=== PATIENT | male | born 1930 | race Caucasian/White ===

== ENCOUNTER 2017-02-13 18:39 | Inpatient (IN) | payer MEDICARE, BC ==
--- NOTE | 2017-02-13 19:06 | EDM.PDOC ---
ED HPI Trauma - General Chief Complaint: Trauma Stated Complaint: BY AMB Time Seen by Provider: 02/13/17 19:01 Source: Reports: Patient History Limitations: Reports: No limitations - History of Present Illness INITIAL COMMENTS - FREE TEXT/NARRATIVE: 86 yo white male c/o left leg weakness and fall today. PMHx. Low Back Problem and HTN Symptom Onset Date: 02/13/17 Symptom Onset Time: 17:00 Occurred When: this evening Occurred Where: home Method of Injury: fall Severity: moderate Pain/Injury Location: Reports: back Consciousness: Reports: no loss of consciousness Associated Symptoms: Reports: no other symptoms Allergies/ADRs: Allergies Penicillins Allergy (Verified 02/13/17 18:47) Cannot Remember Home Medications: Ambulatory Orders Aspirin [Adult Low Dose Aspirin EC] 81 mg PO DAILY 02/05/14 [Confirmed 11/29/16] Fenofibrate Nanocrystallized [Fenofibrate] 54 mg PO DAILY 02/05/14 [Confirmed ] Furosemide 40 mg PO DAILY 02/05/14 [Confirmed 11/29/16] Isosorbide Mononitrate [Isosorbide Mononitrate ER] 20 mg PO BID 02/05/14 [ Confirmed 11/29/16] Lisinopril 5 mg PO DAILY 02/05/14 [Confirmed 11/29/16] Metoprolol Succinate [Toprol XL 100mg] 100 mg PO DAILY 02/05/14 [Confirmed 11/29] Multivitamin [Multi-Vitamin Daily] 1 tab PO DAILY 02/05/14 [Confirmed 11/29/16] [place]-3/DHA/Epa/Fish Oil [Fish Oil Dr 500 mg Softgel] 1 gm PO BID 02/05/14 [ Confirmed 11/29/16] Omeprazole 20 mg PO DAILY 02/05/14 [Confirmed 11/29/16] Simvastatin 40 mg PO BEDTIME 02/05/14 [Confirmed 11/29/16] cloNIDine HCl [Clonidine HCl] 0.2 mg PO BID 02/05/14 [Confirmed 11/29/16] Sertraline [Zoloft] 50 mg PO DAILY 11/29/16 [Confirmed 11/29/16] Past Medical History Cardiovascular History: Reports: CAD, High cholesterol, Hypertension Genitourinary History: Reports: Renal disease Endocrine/Metabolic History: Reports: Diabetes, type II - Past Surgical History Cardiovascular Surgical History: Reports: Coronary artery bypass, Coronary artery stent Social & Family History - Tobacco Use Smoking Status *Q: Never Smoker Month Tobacco Last Used: 1960's Second Hand Smoke Exposure: No - Caffeine Use Caffeine Use: Reports: None - Alcohol Use Days Per Week of Alcohol Use: 0 - Recreational Drug Use Recreational Drug Use: No Drug Use in Last 12 Months: No - Living Situation & Occupation Occupation: retired Review of Systems - Review of Systems Review Of Systems: See Below Constitutional: Reports: weakness Eyes: Reports: no symptoms Ears: Reports: no symptoms Nose: Reports: no symptoms Mouth/Throat: Reports: no symptoms Respiratory: Reports: No Symptoms Cardiovascular: Reports: no symptoms GI/Abdominal: Reports: No symptoms Genitourinary: Reports: no symptoms Musculoskeletal: Reports: back pain Skin: Reports: no symptoms Neurological: Reports: Weakness (left leg) Psychiatric: Reports: no symptoms ED EXAM, TRAUMA (MAJOR/MULTI) - Physical Exam Exam: See Below Exam Limited By: No limitations General Appearance: alert, no apparent distress Head: atraumatic, normocephalic Eyes: bilateral eye: PERRL Ears: normal external exam Nose: normal inspection, normal mucousa Throat/Mouth: Normal inspection, Normal lips Neck: non-tender, full range of motion, normal alignment Cardiovascular: normal peripheral pulses, regular rate, rhythm Respiratory/Chest: no respiratory distress, lungs clear GI/Abdominal: normal bowel sounds, non tender Back: normal inspection, decreased range of motion Extremities: no evidence of injury, normal range of motion Neurologic: robotype operator II-XII nml as tested, no motor/sensory deficits, alert, normal mood/affect, oriented x 3 Skin: Normal color, Warm/dry Course - Orders/Labs/Meds Orders: Active Orders 24 hr Category Date Time Status Lumbar Spine 2 or 3V [CR] Urgent Exams 02/13/17 19:02 Taken Labs: Laboratory Tests 02/13/17 02/13/17 02/13/17 Range/Units 18:56 19:15 19:15 WBC 11.2 H (5.0-10.0) 10^3/uL RBC 3.40 L (4.6-6.2) 10^6/uL Hgb 9.3 L (14.0-18.0) g/dL Hct 28.5 L (40.0-54.0) % MCV 83.8 (80-100) fL MCH 27.4 (27.0-34.0) pg MCHC 32.6 L (33.0-35.0) g/dL Plt Count 208 (150-450) 10^3/uL Neut % (Auto) 81.8 H (42.2-75.2) % Lymph % (Auto) 8.7 L (20.5-50.1) % [place] % (Auto) 8.7 H (2-8) % Eos % (Auto) 0.5 L (1.0-3.0) % Baso % (Auto) 0.3 (0.0-1.0) % Sodium 129 L (135-145) mmol/L Potassium 4.2 (3.6-5.0) mmol/L Chloride 93 L (101-111) mmol/L Carbon Dioxide 23.0 (21.0-31.0) mmol/L Anion Gap 17.2 BUN 62 H (7-18) mg/dL Creatinine 2.1 H (0.6-1.3) mg/dL Est Cr Clr Drug Dosing TNP Estimated GFR (MDRD) 30 BUN/Creatinine Ratio 29.52 Glucose 175 H (74-105) mg/dL Calcium 8.9 (8.4-10.2) mg/dl Total Bilirubin 0.8 (0.2-1.0) mg/dL AST 134 H (10-42) IU/L ALT 49 (10-60) IU/L Alkaline Phosphatase 79 (42-121) IU/L Total Protein 7.6 (6.7-8.2) g/dl Albumin 3.2 (3.2-5.5) g/dl Globulin 4.4 Albumin/Globulin Ratio 0.73 Urine Color Yellow (YELLOW) Urine Appearance Clear (CLEAR) Urine pH 5.0 (5.0-9.0) Ur Specific [place] 1.010 (1.005-1.030) Urine Protein Trace H (NEGATIVE) Urine Glucose (UA) Negative (NEGATIVE) Urine Ketones Negative (NEGATIVE) Urine Occult Blood Negative (NEGATIVE) Urine Nitrite Negative (NEGATIVE) Urine Bilirubin Negative (NEGATIVE) Urine Urobilinogen 1.0 (0.2-1.0) mg/dL Ur Leukocyte Esterase Negative (NEGATIVE) Urine RBC Not seen /HPF Urine WBC 0-5 (0-5/HPF) /HPF Ur Epithelial Cells Few /HPF Urine Bacteria Few (0-FEW/HPF) /HPF Departure - Departure Time of Disposition: 20:06 Disposition: Admitted As Inpatient 68 Condition: fair Clinical Impression: Weakness, Hyponatremia, Renal failure, Hyperglycemia Fall Qualifiers: Encounter type: initial encounter Qualified Code(s): W19.XXXA - Unspecified fall, initial encounter Anemia Qualifiers: Anemia type: unspecified type Qualified Code(s): D64.9 - Anemia, unspecified Forms: ED Department Discharge - My Orders Last 24 Hours: My Active Orders 02/13/17 19:02 Lumbar Spine 2 or 3V [CR] Urgent - Assessment/Plan Last 24 Hours: My Active Orders 02/13/17 19:02 Lumbar Spine 2 or 3V [CR] Urgent
[2017-02-13 19:42] LABS: CHLORIDE,CL 93 mmol/L (101-111); SODIUM,NA 129 mmol/L (135-145)
--- NOTE | 2017-02-13 20:56 | PCM.HP ---
H&P History of Present Illness - General Date of Service: 02/13/17 Admit Problem/Dx: pt was admitted after fall at home, he says he fell because his Left leg " gave up" and was unable to stand. Son says he was unable to take his leg out of the car, had no strength in his lower extremity. Source of Information: Patient, Family History Limitations: Reports: No limitations - History of Present Illness Initial Comments - Free Text/Narative: The is a 86 Y/O M with past medical history which is significant for hypertension, diabetes type 2 for 8 to 10 years which is diet controlled. His A1c ranges from 6.2% to 6.7%. Other history includes cardiac arrhythmia, chronic kidney disease stage IV, history of colon cancer status post resection in 2007, coronary artery disease status post coronary artery bypass grafting ( CABG), dyslipidemia, and history of gout with no recent flare. I reviewed his renal panel and his creatinine ranged from 2.8 to 3.2 from 2014 but last renal clinic visit creatinine was at 1.9 mg/dl. pt was admitted after fall at home, he says he fell because his Left leg " gave up" and was unable to stand. Son says he was unable to take his leg out of the car, had no strength in his lower extremity. Pt had X-Ray of Lumber spine and No acute fracture of Lumber spine. Pt now lives independently but after this episode he needs evaluation for assisted living facility . Will wait for evaluation by PT/OT. Onset of Symptoms: Reports: today, sudden Location: Reports: lower extremity, left - Related Data Allergies/Adverse Reactions: Allergies Allergy/AdvReac Type Severity Reaction Status Date / Time Penicillins Allergy Cannot Verified 02/13/17 18:47 Remember Home Medications: Home Meds Aspirin [Adult Low Dose Aspirin EC] 81 mg PO DAILY 02/05/14 [History] Fenofibrate Nanocrystallized [Fenofibrate] 54 mg PO DAILY 02/05/14 [History] Furosemide 40 mg PO DAILY 02/05/14 [History] Metoprolol Succinate [Toprol XL 100mg] 100 mg PO DAILY 02/05/14 [History] Multivitamin [Multi-Vitamin Daily] 1 tab PO DAILY 02/05/14 [History] [place]-3/DHA/Epa/Fish Oil [Fish Oil Dr 500 mg Softgel] 1 gm PO BID 02/05/14 [ History] Simvastatin 40 mg PO BEDTIME 02/05/14 [History] cloNIDine HCl [Clonidine HCl] 0.2 mg PO BID 02/05/14 [History] Sertraline [Zoloft] 50 mg PO DAILY 11/29/16 [History] Acetaminophen [Tylenol] 325 mg PO Q8HR PRN 02/13/17 [History] Isosorbide Mononitrate [Isosorbide Mononitrate ER] 120 mg PO DAILY 02/13/17 [ History] LORazepam 0.5 mg PO Q8H PRN 02/13/17 [History] Magnesium 250 mg PO DAILY 02/13/17 [History] amLODIPine [Norvasc] 2.5 mg PO DAILY 02/13/17 [History] Past Medical History Cardiovascular History: Reports: CAD, High cholesterol, Hypertension Genitourinary History: Reports: Renal disease Endocrine/Metabolic History: Reports: Diabetes, type II - Past Surgical History Cardiovascular Surgical History: Reports: Coronary artery bypass, Coronary artery stent Social & Family History - Tobacco Use Smoking Status *Q: Never Smoker Month Tobacco Last Used: Second Hand Smoke Exposure: No - Caffeine Use Caffeine Use: Reports: None - Alcohol Use Days Per Week of Alcohol Use: 0 - Recreational Drug Use Recreational Drug Use: No Drug Use in Last 12 Months: No - Living Situation & Occupation Occupation: retired H&P Review of Systems - Review of Systems: Review Of Systems: See Below General: Reports: weakness, other (Left LE has no strength). Denies: fever, chills, diaphoresis, weight loss HEENT: Denies: headaches, sinus congestion, sore throat, visual changes Pulmonary: Denies: Shortness of Breath, Wheezing, Cough, Sputum Cardiovascular: Denies: chest pain, lightheadedness, syncope Gastrointestinal: Denies: Abdominal pain, Bloody stool, Diarrhea, Nausea, Vomiting Genitourinary: Denies: dysuria, frequency, burning Musculoskeletal: Reports: leg pain (Left LE). Denies: neck pain Skin: Denies: cyanosis, jaundice, bruising, pruritis Psychiatric: Denies: confusion, anxiety Neurological: Reports: Gait Disturbance. Denies: Confusion, Tingling Immunologic: Denies: environmental allergy, seasonal allergy Exam - Exam Exam: See Below - Vital Signs Weight: 84.822 kg - Exam Quality Assessment: DVT prophylaxis. No: supplemental oxygen, urinary catheter , skin breakdown General: alert, oriented HEENT: Conjunctiva clear, Hearing intact Neck: supple, full range of motion. No: lymphadenopathy, thyromegaly Lungs: Clear to auscultation, Normal respiratory effort. No: Crackles, Wheezing Cardiovascular: regular rate, regular rhythm, systolic murmur Abdomen: normal bowel sounds, soft. No: guarding, rigidity, rebound (Male) Exam: Deferred Rectal (Males) Exam: Deferred Back Exam: normal inspection, full range of motion Extremities: normal inspection. No: calf tenderness, edema Skin: warm, dry, intact Neurological: other (Significant weakness of Left LE) Neuro Extensive - Mental Status: alert, oriented x3, normal mood/affect, normal cognition, memory intact - Patient Data Result Diagrams: 02/13/17 19:15 02/13/17 19:15 *Q Meaningful Use (ADM) - VTE *Q VTE Criteria *Q: - Stroke *Q Stroke Criteria *Q: - AMI *Q AMI Criteria *Q: - Problem List (1) Left leg weakness SNOMED Code(s): 099389315 ICD Code: R29.898 - [facility] SYMPTOMS AND SIGNS INVOLVING THE MUSCULOSKELETAL SYSTEM Status: Acute Current Visit: Yes (2) CKD (chronic kidney disease) stage 4, GFR 15-29 ml/min SNOMED Code(s): 019749818 ICD Code: N18.4 - CHRONIC KIDNEY DISEASE, STAGE 4 (SEVERE) Status: Acute Current Visit: Yes (3) Fall SNOMED Code(s): 4913364, 260833723 ICD Code: W19.XXXA - UNSPECIFIED FALL, INITIAL ENCOUNTER Status: Acute Current Visit: Yes Qualifiers: Encounter type: initial encounter Qualified Code(s): W19.XXXA - Unspecified fall, initial encounter (4) Hyponatremia SNOMED Code(s): 11327715 ICD Code: E87.1 - HYPO-OSMOLALITY AND HYPONATREMIA Status: Acute Current Visit: Yes (5) Weakness SNOMED Code(s): 11663885 ICD Code: R53.1 - WEAKNESS Status: Acute Current Visit: Yes Problem List Initiated/Reviewed/Updated: Yes Assessment/Plan Comment:: The pt was admitted after fall at home, he says he fell because his Left leg " gave up" and was unable to stand. Son says he was unable to take his leg out of the car, he had no strength in his left lower extremity.DIRECTOR POWER of lumber spine showed no fracture 1. Left LE weakness: The etiology is not clear and it happen all of a sudden -CXR of LE spine showed no fracture -Will continue Percocet 5/325 q6-8 hrs prn pain -Will get PT/OT consult and evaluation for placement -Pt used to live independently and now with sudden weakness of left side he will not likely be able to live independently and will need placement in a assisted living facility 2. Hyponatremia: This is likely from pain syndrome -Will need better pain control -Will start him on oral salt tablet 1 gm PO BID with meals 3. Hypertension: BP acceptable, will continue home medication 4. CKD stage IV: This is likely from Hypertension and as well as Disbetes ( Diet Controlloed) -His base line 1.9-2.4 mg/dl and I have decided with him in renal Clinic ( I see him in clinic) and he wants to have Dialysis if Needed, his creatinine today was at 2.1 mg/dl and last clinic visit it was at 1.9 mg/dl and BUN is also elevated -Will start NS at 50 ml/hr 5. Anemia od Chronic Illness/CKD: His hb level was at 9.3 mg/dl, his hgb was at 11.2 g/dl in Nov 2016, will check Stool occult blood and aloso Iron Storage Level With history of Colon cancer and rsection in 2007, will not give Aranesp, will transfuse once hgb <8 g/dl 6. DVT prophylaxis: Will start on on heparin 5000 units TID 7. GI prophylaxis: Start Protonix 8. Code Status: Full Code
[2017-02-13] MEDS ORDERED: Acetaminophen 325 MG Tab PO PRN (21:32)
[2017-02-13] MEDS ORDERED: Docusate Sodium 100 MG Cap PO PRN (21:32)
[2017-02-13] MEDS: Heparin Sodium 5,000 Units/ML Vial SUBCUT SCH (23:18)
[2017-02-13] MEDS: Sodium Chloride 0.9% 250 ML IV SCH (23:21)
[2017-02-14] MEDS ORDERED: Acetaminophen 325 MG Tab PO PRN (00:07)
[2017-02-14] MEDS ORDERED: LORazepam 0.5 MG Tab PO PRN (00:07)
[2017-02-14] MEDS: Heparin Sodium 5,000 Units/ML Vial SUBCUT SCH ×3 (05:58→21:34)
[2017-02-14] MEDS: Pantoprazole 40 MG Tab.CR PO SCH (05:58)
[2017-02-14] MEDS: Multivitamins,Therapeutic Tab PO SCH (09:27)
[2017-02-14] MEDS: Metoprolol Succinate 50 MG Tab.ER PO SCH (09:27)
[2017-02-14] MEDS: Isosorbide Mononitrate 60 MG Tab.ER PO SCH (09:27)
[2017-02-14] MEDS: Aspirin 81 MG Tab.EC PO SCH (09:27)
[2017-02-14] MEDS: Sertraline 50 MG Tab PO SCH (09:28)
[2017-02-14] MEDS: cloNIDine 0.1 MG Tab PO SCH ×3 (09:28→23:09)
[2017-02-14] MEDS: Furosemide 40 MG Tab PO SCH (09:28)
[2017-02-14] MEDS: amLODIPine 5 MG Tab PO SCH (09:29)
--- NOTE | 2017-02-14 11:30 | PCM.PN ---
- General Info Date of Service: 02/14/17 Admission Dx/Problem (Free Text): pt was admitted after fall at home, he says he fell because his Left leg " gave up" and was unable to stand. Son says he was unable to take his leg out of the car, had no strength in his lower extremity. Subjective Update: pt feels little better today, able to come from bed to chair with assistance but too unsteady. appetite is good, No nausea or vomiting, No fever or chill. had no complain of back pain Functional Status: Reports: pain controlled, tolerating diet, urinating, other ( Very unsteady) - Review of Systems General: Reports: Weakness, Appetite (good). Denies: Fever, Chills HEENT: Denies: sinus congestion, sore throat, visual changes Pulmonary: Denies: shortness of breath, cough, sputum, wheezing Cardiovascular: Denies: Chest Pain, Palpitations, Lightheadedness Gastrointestinal: Denies: Abdominal pain, Nausea, Vomiting Genitourinary: Denies: dysuria, frequency, burning, urgency Skin: Denies: cyanosis, jaundice, bruising, pruritis, rash Neurological: Reports: Tremors. Denies: Confusion, Dizziness, Numbness Psychiatric: Reports: no symptoms - Patient Data Vitals - most recent: Last Vital Signs Temp 36.8 C 02/14/17 11:00 Pulse 72 02/14/17 11:00 Resp 20 02/14/17 11:00 BP 155/55 H 02/14/17 11:00 Pulse Ox 98 02/14/17 11:00 Weight - most recent: 84.822 kg I&O - last 24 hours: Intake & Output 02/13/17 02/14/17 02/14/17 22:59 06:59 14:59 Intake Total 500 Output Total 500 900 Balance 0 -900 Lab Results last 24 hrs: Laboratory Results - last 24 hr 02/14/17 Range/Units 05:55 Sodium 131 L (135-145) mmol/L Potassium 4.1 (3.6-5.0) mmol/L Chloride 96 L (101-111) mmol/L Carbon Dioxide 22.0 (21.0-31.0) mmol/L Anion Gap 17.1 BUN 54 H (7-18) mg/dL Creatinine 1.8 H (0.6-1.3) mg/dL Est Cr Clr Drug Dosing 28.56 mL/min Estimated GFR (MDRD) 36 Glucose 149 H (74-105) mg/dL Calcium 9.0 (8.4-10.2) mg/dl Med Orders - Current: Current Medications Acetaminophen (Tylenol) 650 mg PO Q4H PRN PRN Reason: Pain (mild 1-3 )/fever Amlodipine Besylate (Norvasc) 2.5 mg PO DAILY [facility] Last Admin: 02/14/17 09:29 Dose: 2.5 mg Aspirin (Halfprin) 81 mg PO DAILY [facility] Last Admin: 02/14/17 09:27 Dose: 81 mg Clonidine HCl (Catapres) 0.2 mg PO BID [facility] Last Admin: 02/14/17 09:28 Dose: 0.2 mg Docusate Sodium (Colace) 100 mg PO DAILY PRN PRN Reason: Constipation Furosemide (Lasix) 40 mg PO DAILY [facility] Last Admin: 02/14/17 09:28 Dose: 40 mg Heparin Sodium (Porcine) (Heparin Sodium) 5,000 units SUBCUT Q8H [facility] Last Admin: 02/14/17 05:58 Dose: 5,000 units Sodium Chloride (Normal Saline) 250 mls @ 50 mls/hr IV ASDIRECTED [facility] Last Admin: 02/13/17 23:21 Dose: 50 mls/hr Isosorbide Mononitrate (Imdur) 120 mg PO DAILY [facility] Last Admin: 02/14/17 09:27 Dose: 120 mg Lorazepam (Ativan) 0.5 mg PO Q8H PRN PRN Reason: Anxiety Magnesium Oxide (Magnesium Oxide) 250 mg PO DAILY [facility] Last Admin: 02/14/17 09:28 Dose: 250 mg Metoprolol Succinate (Toprol Xl) 100 mg PO DAILY [facility] Last Admin: 02/14/17 09:27 Dose: 100 mg Multivitamins (Thera) 1 each PO DAILY [facility] Last Admin: 02/14/17 09:27 Dose: 1 each Fenofibrate 54 Mg (Own Med) 54 mg PO DAILY [facility] Fish Oil 1000 Mg (Own Med) 1 gm PO BID [facility] Pantoprazole Sodium (Protonix) 40 mg PO ACBREAKFAST [facility] Last Admin: 02/14/17 05:58 Dose: 40 mg Sertraline HCl (Zoloft) 50 mg PO DAILY [facility] Last Admin: 02/14/17 09:28 Dose: 50 mg Simvastatin (Zocor) 20 mg PO BEDTIME [facility] Discontinued Medications Acetaminophen (Tylenol) 325 mg PO Q8H PRN PRN Reason: Pain Stop: 02/14/17 00:09 - Exam Quality Assessment: DVT prophylaxis. No: supplemental oxygen, urine catheter General: alert, oriented, cooperative, no acute distress HEENT: Pupils equal, Mucous membr. moist/pink Neck: supple, no JVD, no thyromegaly. No: lymphadenopathy Lungs: Clear to auscultation, Normal respiratory effort Cardiovascular: Irregular Rhythm, Murmurs Abdomen: bowel sounds present, soft, no tenderness, no distension (Male) Exam: Deferred Back Exam: normal inspection Extremities: no edema, no tenderness/swelling, no clubbing, no calf tenderness Skin: warm, dry, intact Neurological: normal speech, normal tone, other (very unsteady) Psy/Mental Status: alert, normal affect, normal mood - Problem List & Annotations (1) Left leg weakness SNOMED Code(s): 929639106 Code(s): R29.898 - [facility] SYMPTOMS AND SIGNS INVOLVING THE MUSCULOSKELETAL SYSTEM Status: Acute Current Visit: Yes (2) CKD (chronic kidney disease) stage 4, GFR 15-29 ml/min SNOMED Code(s): 234593975 Code(s): N18.4 - CHRONIC KIDNEY DISEASE, STAGE 4 (SEVERE) Status: Acute Current Visit: Yes (3) Fall SNOMED Code(s): 3900237, 872485110 Code(s): W19.XXXA - UNSPECIFIED FALL, INITIAL ENCOUNTER Status: Acute Current Visit: Yes Qualifiers: Encounter type: initial encounter Qualified Code(s): W19.XXXA - Unspecified fall, initial encounter (4) Hyponatremia SNOMED Code(s): 72807173 Code(s): E87.1 - HYPO-OSMOLALITY AND HYPONATREMIA Status: Acute Current Visit: Yes (5) Weakness SNOMED Code(s): 68105754 Code(s): R53.1 - WEAKNESS Status: Acute Current Visit: Yes - Problem List Review Problem List Initiated/Reviewed/Updated: Yes - My Orders Last 24 Hours: My Active Orders 02/13/17 21:38 PT Evaluation and Treatment [CONS] Routine 02/13/17 21:39 OT Evaluation and Treatment [CONS] Routine 02/13/17 21:45 Sodium Chloride 0.9% [Normal Saline] 250 ml IV ASDIRECTED 02/14/17 00:07 LORazepam [Ativan] 0.5 mg PO Q8H PRN 02/14/17 06:00 Pantoprazole [ProTONIX] 40 mg PO ACBREAKFAST 02/14/17 09:00 Aspirin [Halfprin] 81 mg PO DAILY Fenofibrate Nanocrystallized [Fenofibrate] 54 mg PO DAILY Furosemide [Lasix] 40 mg PO DAILY Isosorbide Mononitrate [Imdur] 120 mg PO DAILY Magnesium Oxide 250 mg PO DAILY Metoprolol Succinate [Toprol XL] 100 mg PO DAILY Multivitamins,Therapeutic [Thera] 1 each PO DAILY [place]-3/DHA/Epa/Fish Oil [Fish Oil Dr 500 mg Softgel] 1 gm PO BID Sertraline [Zoloft] 50 mg PO DAILY amLODIPine [Norvasc] 2.5 mg PO DAILY cloNIDine [Catapres] 0.2 mg PO BID 02/14/17 21:00 Simvastatin [Zocor] 20 mg PO BEDTIME 02/15/17 06:00 CBC WITH AUTO DIFF [HEME] Routine 02/15/17 08:16 IRON PANEL IRON/TRANSFERR/FERR [REF] Routine - Plan Plan:: The pt was admitted after fall at home, he says he fell because his Left leg " gave up" and was unable to stand. Son says he was unable to take his leg out of the car, he had no strength in his left lower extremity.ADULT NURSE PRACTITIONER of lumber spine showed no fracture 1. Left LE weakness: The etiology is not clear and it happen all of a sudden -CXR of LE spine showed no fracture -Will continue Percocet 5/325 q6-8 hrs prn pain -I have placed PT/OT consult and evaluation for placement -Pt used to live independently and now with sudden weakness of left side he will not likely be able to live independently and will need placement in a assisted living facility and son aware of his dad's status 2. Hyponatremia: This is likely from pain syndrome -Will need better pain control -Will continue him on IV fluids NS at 50 ml/hr and sodium is improving with pain control 3. Hypertension: BP acceptable, will continue Imdur at 120 mg daily, Metoprolol at 100 mg daily and Amlodipine at 2.5 mg daily 4. CKD stage IV: This is likely from Hypertension and as well as Disbetes ( Diet Controlloed) -His base line 1.9-2.4 mg/dl and I have decided with him in renal Clinic ( I see him in clinic) and he wants to have Dialysis if Needed, his creatinine today was at 2.1 mg/dl and last clinic visit it was at 1.9 mg/dl and BUN is also elevated -Will continue NS at 50 ml/hr -Creatinine is better today, it was at 1.8 mg/dl and Bun has also Improved 5. Anemia od Chronic Illness/CKD: His hb level was at 9.3 mg/dl, his hgb was at 11.2 g/dl in Nov 2016, will check Stool occult blood and aloso Iron Storage Level With history of Colon cancer and rsection in 2007, will not give Aranesp, will transfuse once hgb <8 g/dl - Will check Iron storage level ( I have ordered) will take 2 days to get the result 6. DVT prophylaxis: Will start on on heparin 5000 units TID 7. GI prophylaxis: Start Protonix 8. Code Status: Full Code
[2017-02-14] MEDS: FISH OIL 1000 MG PO SCH ×2 (13:14→21:24)
[2017-02-14] MEDS: FENOFIBRATE 54 MG PO SCH (13:15)
[2017-02-14] MEDS: Sodium Chloride 0.9% 250 ML IV SCH (19:37)
[2017-02-14] MEDS ORDERED: Simvastatin 10 MG Tab PO SCH (21:00)
[2017-02-15] MEDS ORDERED: Sodium Chloride 0.9% 1,000 ML IV SCH (00:30)
[2017-02-15] MEDS: Heparin Sodium 5,000 Units/ML Vial SUBCUT SCH ×2 (05:50→13:45)
[2017-02-15] MEDS: Pantoprazole 40 MG Tab.CR PO SCH (05:50)
[2017-02-15] MEDS: Multivitamins,Therapeutic Tab PO SCH (09:34)
[2017-02-15] MEDS: Aspirin 81 MG Tab.EC PO SCH (09:34)
[2017-02-15] MEDS: Metoprolol Succinate 50 MG Tab.ER PO SCH (09:35)
[2017-02-15] MEDS: Furosemide 40 MG Tab PO SCH (09:35)
[2017-02-15] MEDS: cloNIDine 0.1 MG Tab PO SCH (09:35)
[2017-02-15] MEDS: amLODIPine 5 MG Tab PO SCH (09:35)
[2017-02-15] MEDS: FENOFIBRATE 54 MG PO SCH (09:36)
[2017-02-15] MEDS: Isosorbide Mononitrate 60 MG Tab.ER PO SCH (09:36)
[2017-02-15] MEDS: FISH OIL 1000 MG PO SCH (09:36)
[2017-02-15] MEDS: Sertraline 50 MG Tab PO SCH (10:35)
--- NOTE | 2017-02-15 14:26 | PCM.DCSUM1 ---
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 His A1c ranges from 6.2% to 6.7%. Other history includes cardiac arrhythmia, chronic kidney disease stage IV, history of colon cancer status post resection in 2007, coronary artery disease status post coronary artery bypass grafting ( CABG), dyslipidemia, and history of gout with no recent flare. His renal panel and his creatinine ranged from 2.8 to 3.2 from 2015 but last renal clinic visit creatinine was at 1.9 mg/dl. pt was admitted after fall at home. patient stated that prior to the fall he rode in the car with his son for several hour which is unusual for him. include sitting for long time his left leg went numb to the point that he found it difficult to get his leg out of the car. With the support of his son he went to the house and immediately fell because of numbed leg give up on him. he denies left upper extremities weakness, facial drooping, right-sided weakness, difficulty swallowing, difficulty understanding, slurred speech, incontinence, or any other symptoms. Patient's left leg numbness/weakness completely resolved today. He was assessed by the physical therapist and who had concerned about parkinsonism walk. Per patient request he wants to go back to his house and arranged for assisted living setting. He declined to go to a long-term at time. Pt had X-Ray of Lumber spine and No acute fracture of Lumber spine. on admission his WBC 11.2. Hemoglobin 9.3, dropped to 8.9 today. Her sodium on admission was 129, went to 131 yesterday. Creatinine was 2.1 on admission. iron panel was ordered and not resulted. Patient denies blood in the sore back stool. Patient did not have all movement to be able to collect Hemoccult. I discussed with him discussing his anemia with his primary care provider and ask for workup. He was advised to followup with neurologist as soon as possible. I will give him a trial of iron orally. 10 point review of systems is otherwise negative except as mentioned above - Discharge Data Discharge Date: 02/15/17 Discharge Disposition: Home, Self-Care 01 Condition: Fair - Discharge Diagnosis/Problem(s) (1) Anemia SNOMED Code(s): 158474108 ICD Code: D64.9 - ANEMIA, UNSPECIFIED Status: Chronic Current Visit: Yes Qualifiers: Anemia type: unspecified type Qualified Code(s): D64.9 - Anemia, unspecified (2) CKD (chronic kidney disease) stage 4, GFR 15-29 ml/min SNOMED Code(s): 209547554 ICD Code: N18.4 - CHRONIC KIDNEY DISEASE, STAGE 4 (SEVERE) Status: Chronic Current Visit: Yes (3) Fall SNOMED Code(s): 9613702, 027651735 ICD Code: W19.XXXA - UNSPECIFIED FALL, INITIAL ENCOUNTER Status: Acute Current Visit: Yes Qualifiers: Encounter type: initial encounter Qualified Code(s): W19.XXXA - Unspecified fall, initial encounter (4) Hyperglycemia SNOMED Code(s): 63590545 ICD Code: R73.9 - HYPERGLYCEMIA, UNSPECIFIED Status: Acute Current Visit : Yes (5) Hyponatremia SNOMED Code(s): 33009852 ICD Code: E87.1 - HYPO-OSMOLALITY AND HYPONATREMIA Status: Acute Current Visit: Yes (6) Left leg weakness SNOMED Code(s): 118072066 ICD Code: R29.898 - OTH SYMPTOMS AND SIGNS INVOLVING THE MUSCULOSKELETAL SYSTEM Status: Acute Current Visit: Yes (7) Weakness SNOMED Code(s): 01482534 ICD Code: R53.1 - WEAKNESS Status: Acute Current Visit: Yes - Patient Summary/Data Consults: Consultations 02/13/17 21:38 PT Evaluation and Treatment [CONS] Routine 02/13/17 21:39 OT Evaluation and Treatment [CONS] Routine - Patient Instructions Diet: Heart Healthy Diet Activity: As Tolerated (take all measures to avoid full. Using your walker) - Discharge Plan Prescriptions/Med Rec: Ferrous Sulfate 325 mg PO Q24H #30 tablet Omeprazole 20 mg PO Q24H #30 tablet. Home Medications: Home Meds Aspirin [Adult Low Dose Aspirin EC] 81 mg PO DAILY 02/05/14 [History] Fenofibrate Nanocrystallized [Fenofibrate] 54 mg PO DAILY 02/05/14 [History] Furosemide 40 mg PO DAILY 02/05/14 [History] Metoprolol Succinate [Toprol XL 100mg] 100 mg PO DAILY 02/05/14 [History] Multivitamin [Multi-Vitamin Daily] 1 tab PO DAILY 02/05/14 [History] [place]-3/DHA/Epa/Fish Oil [Fish Oil Dr 500 mg Softgel] 1 gm PO BID 02/05/14 [ History] Simvastatin 40 mg PO BEDTIME 02/05/14 [History] cloNIDine HCl [Clonidine HCl] 0.2 mg PO BID 02/05/14 [History] Sertraline [Zoloft] 50 mg PO DAILY 11/29/16 [History] Acetaminophen [Tylenol] 325 mg PO Q8HR PRN 02/13/17 [History] Isosorbide Mononitrate [Isosorbide Mononitrate ER] 120 mg PO DAILY 02/13/17 [ History] LORazepam 0.5 mg PO Q8H PRN 02/13/17 [History] Magnesium 250 mg PO DAILY 02/13/17 [History] amLODIPine [Norvasc] 2.5 mg PO DAILY 02/13/17 [History] Ferrous Sulfate 325 mg PO Q24H #30 tablet 02/15/17 [Rx] Omeprazole 20 mg PO Q24H #30 tablet. 02/15/17 [Rx] Patient Handouts: Fall Prevention in the Home, [id number], Iron tablets, capsules, extended-release tablets, Weakness, Omeprazole tablets (OTC) Referrals: PCP,Unobtain [Ordering Only Provider] - - General Info Admission Dx/Problem (Free Text: pt was admitted after fall at home, he says he fell because his Left leg " gave up" and was unable to stand. Son says he was unable to take his leg out of the car, had no strength in his lower extremity. Subjective Update: patient feels better today. He feels he is back to his normal. - Patient Data Vitals - Most Recent: Last Vital Signs Temp 36.9 C 02/15/17 11:03 Pulse 66 02/15/17 11:03 Resp 20 02/15/17 11:03 BP 116/46 L 02/15/17 11:03 Pulse Ox 97 02/15/17 11:03 Weight - Most Recent: 84.822 kg I&O - Last 24 hours: Intake & Output 02/14/17 02/15/17 02/15/17 22:59 06:59 14:59 Intake Total 1509 440 459 Output Total 400 225 Balance 1109 215 459 Lab Results - Last 24 hrs: Laboratory Results - last 24 hr 02/15/17 Range/Units 06:00 WBC 10.1 H (5.0-10.0) 10^3/uL RBC 3.29 L (4.6-6.2) 10^6/uL Hgb 8.9 L (14.0-18.0) g/dL Hct 28.3 L (40.0-54.0) % MCV 86.0 (80-100) fL MCH 27.1 (27.0-34.0) pg MCHC 31.4 L (33.0-35.0) g/dL Plt Count 192 (150-450) 10^3/uL Neut % (Auto) 75.6 H (42.2-75.2) % Lymph % (Auto) 14.2 L (20.5-50.1) % [place] % (Auto) 9.5 H (2-8) % Eos % (Auto) 0.5 L (1.0-3.0) % Baso % (Auto) 0.2 (0.0-1.0) % Med Orders - Current: Current Medications Acetaminophen (Tylenol) 650 mg PO Q4H PRN PRN Reason: Pain (mild 1-3 )/fever Amlodipine Besylate (Norvasc) 2.5 mg PO DAILY [facility] Last Admin: 02/15/17 09:35 Dose: 2.5 mg Aspirin (Halfprin) 81 mg PO DAILY [facility] Last Admin: 02/15/17 09:34 Dose: 81 mg Clonidine HCl (Catapres) 0.2 mg PO BID [facility] Last Admin: 02/15/17 09:35 Dose: 0.2 mg Docusate Sodium (Colace) 100 mg PO DAILY PRN PRN Reason: Constipation Furosemide (Lasix) 40 mg PO DAILY [facility] Last Admin: 02/15/17 09:35 Dose: 40 mg Heparin Sodium (Porcine) (Heparin Sodium) 5,000 units SUBCUT Q8H [facility] Last Admin: 02/15/17 13:45 Dose: Not Given Sodium Chloride (Normal Saline) 1,000 mls @ 50 mls/hr IV ASDIRECTED [facility] Last Admin: 02/15/17 00:27 Dose: 50 mls/hr Isosorbide Mononitrate (Imdur) 120 mg PO DAILY [facility] Last Admin: 02/15/17 09:36 Dose: 120 mg Lorazepam (Ativan) 0.5 mg PO Q8H PRN PRN Reason: Anxiety Magnesium Oxide (Magnesium Oxide) 250 mg PO DAILY [facility] Last Admin: 02/15/17 09:36 Dose: 250 mg Metoprolol Succinate (Toprol Xl) 100 mg PO DAILY [facility] Last Admin: 02/15/17 09:35 Dose: 100 mg Multivitamins (Thera) 1 each PO DAILY [facility] Last Admin: 02/15/17 09:34 Dose: 1 each Fenofibrate 54 Mg (Own Med) 54 mg PO DAILY [facility] Last Admin: 02/15/17 09:36 Dose: 54 mg Fish Oil 1000 Mg (Own Med) 1 gm PO BID [facility] Last Admin: 02/15/17 09:36 Dose: 1 gm Pantoprazole Sodium (Protonix) 40 mg PO ACBREAKFAST [facility] Last Admin: 02/15/17 05:50 Dose: 40 mg Sertraline HCl (Zoloft) 50 mg PO DAILY [facility] Last Admin: 02/15/17 10:35 Dose: 50 mg Simvastatin (Zocor) 20 mg PO BEDTIME [facility] Last Admin: 02/14/17 21:25 Dose: 20 mg Discontinued Medications Acetaminophen (Tylenol) 325 mg PO Q8H PRN PRN Reason: Pain Stop: 02/14/17 00:09 Sodium Chloride (Normal Saline) 250 mls @ 50 mls/hr IV ASDIRECTED [facility] Stop: 02/15/17 00:16 Last Admin: 02/14/17 19:37 Dose: 50 mls/hr - Exam General: Reports: alert, oriented, cooperative. Denies: no acute distress, mild distress, moderate distress, severe distress, sedated, lethargic, obtunded HEENT: Reports: Pupils equal, Pupils reactive, EOMI, Mucous membr. moist/pink Neck: Reports: supple, trachea midline, no JVD Lungs: Reports: Clear to auscultation, Normal respiratory effort. Denies: Crackles, Rales, Rhonchi, Rub, Stridor, Wheezing Cardiovascular: Reports: Regular Rate, Regular Rhythm. Denies: Irregular Rhythm Abdomen: Reports: bowel sounds present, soft, no tenderness, no distension. Denies: rigidity, rebound, guarding, tenderness, distension, abnormal bowel sounds, CVA tenderness, organomegaly (Male) Exam: Deferred Rectal (Males) Exam: Deferred Back Exam: Reports: normal inspection, full range of motion Extremities: Reports: no edema, normal pulses, no tenderness/swelling, no clubbing, no cyanosis, no calf tenderness Skin: Reports: warm, dry, intact Neurological: Reports: no new focal deficit, normal speech, normal tone, strength equal bilateral, reflexes equal bilateral, sensation intact, cranial nerves intact Psy/Mental Status: Reports: alert, normal affect, normal mood *Q Meaningful Use (DIS) - VTE *Q VTE Criteria *Q: - Stroke *Q Stroke Criteria *Q: - AMI *Q AMI Criteria *Q:
[2017-02-15 15:17] VITALS: BP 119/48
== END 2017-02-15 15:22 | disposition home or self-care (01) | DRG 556 ==
LOC: DL.ED 18:39 → UNDOADMOB 20:29 → DL.MS 20:29 → OBSVTOIN 21:32 → DL.MS 21:32
PROVIDERS: ADMIT Internal Medicine Nephrology; ATTEND Internal Medicine Nephrology
DX: R53.1 Weakness (principal); M54.5 Low back pain; M62.81 Muscle weakness (generalized); E87.1 Hypo-osmolality and hyponatremia; R73.9 Hyperglycemia, unspecified; N17.9 Acute kidney failure, unspecified; N18.4 Chronic kidney disease, stage 4 (severe); I12.9 Hypertensive chronic kidney disease with stage 1 through stage 4 chronic kidney disease, or unspecified chronic kidney disease; I25.10 Atherosclerotic heart disease of native coronary artery without angina pectoris; Z85.038 Personal history of other malignant neoplasm of large intestine; Z95.1 Presence of aortocoronary bypass graft; E78.5 Hyperlipidemia, unspecified; Z87.39 Personal history of other diseases of the musculoskeletal system and connective tissue; D64.9 Anemia, unspecified; W19.XXXA Unspecified fall, initial encounter; E11.65 Type 2 diabetes mellitus with hyperglycemia; R26.89 Other abnormalities of gait and mobility
CPT/HCPCS: 36415; 72100; 80048; 80053; 81001; 82728; 83540; 84466; 85025; 97162-GP; 97165-GO; 99285; A9270-GY; J1644; J7030; J7050

== ENCOUNTER 2017-03-31 22:50 | Emergency (ER) | payer MEDICARE, BC ==
[2017-04-01 00:05] LABS: CHLORIDE,CL 97 mmol/L (101-111); SODIUM,NA 132 mmol/L (135-145)
[2017-04-01] MEDS ORDERED: Acetaminophen 325 MG Tab PO ONE (01:54)
--- NOTE | 2017-04-01 02:04 | EDM.PDOC ---
ED HPI GENERAL MEDICAL PROBLEM - General Chief Complaint: Chest Pain Stated Complaint: L SIDE CHEST PAIN Time Seen by Provider: 03/31/17 22:55 Source of Information: Reports: Patient History Limitations: Reports: No Limitations - History of Present Illness INITIAL COMMENTS - FREE TEXT/NARRATIVE: ED ambulatory with c/o constant sharp left sided chest pain since 8pm. Has hx of similar intermittent pains in chest and epigastric area "forever" States he has been seen and nobody can tell him what pains are from. Denies nausea or sweating. Rates pain 8/10 on admission. Does not appear in distress, very talkative. Bruising noted to forehead and top of left hand. Admits from fall earlier to day while in clinic. Was seen in ED following and evaluated. Points to upper left chest and below ribs. Duration: Intermittent Location: Reports: Chest Treatments [employer]IG[employer] COMM[employer]ICATIONS MANAGER: Reports: Acetaminophen Left Lower Chest Pain Score (Numeric/FACES): 5 - Related Data Allergies Allergy/AdvReac Type Severity Reaction Status Date / Time Penicillins Allergy Cannot Verified 03/31/17 23:22 Remember Home Meds: Home Meds Aspirin [Adult Low Dose Aspirin EC] 81 mg PO DAILY 02/05/14 [History] Fenofibrate Nanocrystallized [Fenofibrate] 54 mg PO DAILY 02/05/14 [History] Furosemide 40 mg PO DAILY 02/05/14 [History] Metoprolol Succinate [Toprol XL 100mg] 100 mg PO DAILY 02/05/14 [History] Multivitamin [Multi-Vitamin Daily] 1 tab PO DAILY 02/05/14 [History] [place]-3/DHA/Epa/Fish Oil [Fish Oil Dr 500 mg Softgel] 1 gm PO BID 02/05/14 [ History] Simvastatin 40 mg PO BEDTIME 02/05/14 [History] cloNIDine HCl [Clonidine HCl] 0.2 mg PO BID 02/05/14 [History] Sertraline [Zoloft] 50 mg PO DAILY 11/29/16 [History] Acetaminophen [Tylenol] 325 mg PO Q8HR PRN 02/13/17 [History] Isosorbide Mononitrate [Isosorbide Mononitrate ER] 120 mg PO DAILY 02/13/17 [ History] LORazepam 0.5 mg PO Q8H PRN 02/13/17 [History] Magnesium 250 mg PO DAILY 02/13/17 [History] amLODIPine [Norvasc] 2.5 mg PO DAILY 02/13/17 [History] Ferrous Sulfate 325 mg PO Q24H #30 tablet 02/15/17 [Rx] Omeprazole 20 mg PO Q24H #30 tablet. 02/15/17 [Rx] Fluorouracil [Fluorouracil] 5 percent TOP DAILY 03/31/17 [History] Past Medical History HEENT History: Reports: Cataract Cardiovascular History: Reports: CAD, High Cholesterol, Hypertension Respiratory History: Reports: Bronchitis, Recurrent Genitourinary History: Reports: Renal Disease Other Genitourinary History: stage 4 kidney disease Musculoskeletal History: Reports: Arthritis, Gout Psychiatric History: Reports: Anxiety, Depression Endocrine/Metabolic History: Reports: Diabetes, Type II Oncologic (Cancer) History: Reports: Basal Cell Carcinoma, Colon, Prostate Dermatologic History: Reports: Melanoma - Past Surgical History Head Surgeries/Procedures: Reports: None HEENT Surgical History: Reports: Cataract Surgery Cardiovascular Surgical History: Reports: Coronary Artery Bypass, Coronary Artery Stent GI Surgical History: Reports: Appendectomy, Colonoscopy Dermatological Surgical History: Reports: Skin Biopsy Social & Family History - Family History Family Medical History: Noncontributory - Tobacco Use Smoking Status *Q: Unknown Ever Smoked Month Tobacco Last Used: 1959's Second Hand Smoke Exposure: No - Caffeine Use Caffeine Use: Reports: None - Alcohol Use Days Per Week of Alcohol Use: 0 - Recreational Drug Use Recreational Drug Use: No Drug Use in Last 12 Months: No - Living Situation & Occupation Occupation: Retired ED ROS GENERAL - Review of Systems Review Of Systems: See Below Constitutional: Reports: No Symptoms HEENT: Reports: No Symptoms Respiratory: Reports: No Symptoms Cardiovascular: Reports: Chest Pain (intermittent sharp) Musculoskeletal: Reports: No Symptoms Skin: Reports: Bruising (forehead), Wound (weeping skin tear right hand) Neurological: Denies: Confusion, Dizziness, Difficulty Walking, Weakness Psychiatric: Reports: Anxiety ED EXAM, GENERAL - Physical Exam Exam: See Below Exam Limited By: No Limitations General Appearance: Alert, No Apparent Distress (talkative,) Eye Exam: Bilateral Eye: EOMI, PERRL Ears: Normal External Exam, Normal TMs Nose: Normal Inspection Throat/Mouth: Normal Inspection Head: Atraumatic, Normocephalic Neck: Normal Inspection Respiratory/Chest: No Respiratory Distress, Lungs Clear, Normal Breath Sounds. No: Chest Non-Tender (tender with palpation right lateal chest) Cardiovascular: Normal Peripheral Pulses, Regular Rate, Rhythm, No Edema GI/Abdominal: Normal Bowel Sounds, Soft Back Exam: Normal Inspection Extremities: Normal Inspection Neurological: Alert, Oriented, Normal Cognition Psychiatric: Anxious Skin Exam: Warm, Dry, Ecchymosis (central forehead), Wound/Incision (skin tear right dorsal hand) EKG INTERPRETATION Rhythm: NSR Course - Vital Signs Last Recorded V/S: Last Vital Signs Temp 97.7 F 04/01/17 02:10 Pulse 75 04/01/17 02:10 Resp 23 H 04/01/17 02:10 BP 145/67 H 04/01/17 02:10 Pulse Ox 99 04/01/17 02:10 - Orders/Labs/Meds Labs: Laboratory Tests 03/31/17 03/31/17 Range/Units 23:08 23:08 WBC 12.3 H (5.0-10.0) 10^3/uL RBC 4.06 L (4.6-6.2) 10^6/uL Hgb 10.8 L (14.0-18.0) g/dL Hct 33.9 L (40.0-54.0) % MCV 83.5 (80-100) fL MCH 26.6 L (27.0-34.0) pg MCHC 31.9 L (33.0-35.0) g/dL Plt Count 276 (150-450) 10^3/uL Neut % (Auto) 77.3 H (42.2-75.2) % Lymph % (Auto) 14.8 L (20.5-50.1) % [place] % (Auto) 7.0 (2-8) % Eos % (Auto) 0.7 L (1.0-3.0) % Baso % (Auto) 0.2 (0.0-1.0) % Sodium 132 L (135-145) mmol/L Potassium 4.9 (3.6-5.0) mmol/L Chloride 97 L (101-111) mmol/L Carbon Dioxide 22.0 (21.0-31.0) mmol/L Anion Gap 17.9 BUN 53 H (7-18) mg/dL Creatinine 1.8 H (0.6-1.3) mg/dL Est Cr Clr Drug Dosing 28.49 mL/min Estimated GFR (MDRD) 36 BUN/Creatinine Ratio 29.44 Glucose 171 H (74-105) mg/dL Calcium 9.1 (8.4-10.2) mg/dl Total Bilirubin 1.4 H (0.2-1.0) mg/dL AST 113 H (10-42) IU/L ALT 43 (10-60) IU/L Alkaline Phosphatase 110 (42-121) IU/L Troponin I < 0.02 (0.00-0.02) ng/ml B-Natriuretic Peptide 130 H (0-100) pg/ml Total Protein 8.1 (6.7-8.2) g/dl Albumin 3.3 (3.2-5.5) g/dl Globulin 4.8 Albumin/Globulin Ratio 0.69 Amylase 608 H (28-100) U/L Meds: Medications Discontinued Medications Generic Name Dose Route Start Last Admin Trade Name Freq PRN Reason Stop Dose Admin Acetaminophen 650 mg 04/01/17 01:54 04/01/17 02:06 Tylenol PO 04/01/17 01:55 650 mg NOW ONE Administration - Radiology Interpretation Free Text/Narrative:: Cxr negative - Re-Assessments/Exams Free Text/Narrative Re-Assessment/Exam: 04/02/17 06:33 Patient anxious calms in ED, Reassurance given. Lengthy discussion with RN, Patient planning to move to Assisted Living first week of April, Chest pain resolved on arrival to ED remained pain free Departure - Departure Time of Disposition: 01:49 Disposition: Home, Self-Care 01 Condition: good Clinical Impression: Non-cardiac chest pain Referrals: Parker Velasquez MD [Primary Care Provider] - Forms: ED Department Discharge Additional Instructions: rest follow up with PCP return if symptoms worsen
[2017-04-01 03:05] VITALS: BP 145/67
--- NOTE | 2017-04-04 14:37 | EKG ---
03/31/2017 - ORIANA JEONG - TIME: 2254 hours. EKG per my reading, shows sinus rhythm at a rate of 87 with PACs. [facility] /[id number]
== END 2017-04-01 02:20 | disposition home or self-care (01) ==
LOC: DL.ED 22:50
DX: R07.89 Other chest pain (principal); I25.10 Atherosclerotic heart disease of native coronary artery without angina pectoris; E78.00 Pure hypercholesterolemia, unspecified; I12.9 Hypertensive chronic kidney disease with stage 1 through stage 4 chronic kidney disease, or unspecified chronic kidney disease; N18.4 Chronic kidney disease, stage 4 (severe); M19.90 Unspecified osteoarthritis, unspecified site; F41.9 Anxiety disorder, unspecified; F32.9 Major depressive disorder, single episode, unspecified; E11.9 Type 2 diabetes mellitus without complications; Z98.49 Cataract extraction status, unspecified eye; Z95.1 Presence of aortocoronary bypass graft; Z90.49 Acquired absence of other specified parts of digestive tract; Z88.0 Allergy status to penicillin; Z79.82 Long term (current) use of aspirin; Z79.899 Other long term (current) drug therapy; S61.411A Laceration without foreign body of right hand, initial encounter; S00.83XA Contusion of other part of head, initial encounter; I10 Essential (primary) hypertension; W19.XXXA Unspecified fall, initial encounter; R42 Dizziness and giddiness
CPT/HCPCS: 36415; 70450; 71010; 74176; 80053; 82150; 83880; 84484; 85025; 93005; 93010; 99282; 99283; 99284; 99285; A9270

== ENCOUNTER 2017-04-06 20:41 | Emergency (ER) | payer MEDICARE, BC ==
[2017-04-06 21:30] LABS: CHLORIDE,CL 93 mmol/L (101-111); SODIUM,NA 130 mmol/L (135-145)
--- NOTE | 2017-04-06 22:28 | EDM.PDOC ---
ED HPI GENERAL MEDICAL PROBLEM - General Chief Complaint: Respiratory Problem Stated Complaint: SOB,ABD PAINS, [id number] Time Seen by Provider: 04/06/17 20:55 Source of Information: Reports: Patient History Limitations: Reports: No Limitations - History of Present Illness INITIAL COMMENTS - FREE TEXT/NARRATIVE: c/o left side pain with nausea and dry heaves after waking from nap. Presents with granddaughter. Notes patient to be declining past month, has had 3 falls this month. Notes poor balance on standing . Left Chest Pain Score (Numeric/FACES): 4 - Related Data Allergies Allergy/AdvReac Type Severity Reaction Status Date / Time Penicillins Allergy Rash Verified 04/06/17 21:23 Home Meds: Home Meds Aspirin [Adult Low Dose Aspirin EC] 81 mg PO DAILY 02/05/14 [History] Fenofibrate Nanocrystallized [Fenofibrate] 54 mg PO DAILY 02/05/14 [History] Furosemide 40 mg PO DAILY 02/05/14 [History] Metoprolol Succinate [Toprol XL 100mg] 100 mg PO DAILY 02/05/14 [History] Multivitamin [Multi-Vitamin Daily] 1 tab PO DAILY 02/05/14 [History] [place]-3/DHA/Epa/Fish Oil [Fish Oil Dr 500 mg Softgel] 1 gm PO BID 02/05/14 [ History] Simvastatin 40 mg PO BEDTIME 02/05/14 [History] cloNIDine HCl [Clonidine HCl] 0.2 mg PO BID 02/05/14 [History] Sertraline [Zoloft] 50 mg PO DAILY 11/29/16 [History] Acetaminophen [Tylenol] 325 mg PO Q8HR PRN 02/13/17 [History] Isosorbide Mononitrate [Isosorbide Mononitrate ER] 120 mg PO DAILY 02/13/17 [ History] LORazepam 0.5 mg PO Q8H PRN 02/13/17 [History] Magnesium 250 mg PO DAILY 02/13/17 [History] amLODIPine [Norvasc] 2.5 mg PO DAILY 02/13/17 [History] Fluorouracil [Fluorouracil] 5 percent TOP DAILY 03/31/17 [History] Ferrous Sulfate 325 mg PO DAILY 04/06/17 [History] Omeprazole 20 mg PO DAILY 04/06/17 [History] traMADol [Ultram] 25 mg PO Q8H PRN 04/06/17 [History] Past Medical History HEENT History: Reports: Cataract Cardiovascular History: Reports: CAD, High Cholesterol, Hypertension Respiratory History: Reports: Bronchitis, Recurrent Genitourinary History: Reports: Renal Disease Other Genitourinary History: stage 4 kidney disease Musculoskeletal History: Reports: Arthritis, Gout Psychiatric History: Reports: Anxiety, Depression Endocrine/Metabolic History: Reports: Diabetes, Type II Oncologic (Cancer) History: Reports: Basal Cell Carcinoma, Colon, Prostate Dermatologic History: Reports: Melanoma - Past Surgical History Head Surgeries/Procedures: Reports: None HEENT Surgical History: Reports: Cataract Surgery Cardiovascular Surgical History: Reports: Coronary Artery Bypass, Coronary Artery Stent GI Surgical History: Reports: Appendectomy, Colonoscopy Dermatological Surgical History: Reports: Skin Biopsy Social & Family History - Family History Family Medical History: Noncontributory - Tobacco Use Smoking Status *Q: Unknown Ever Smoked Month Tobacco Last Used: Second Hand Smoke Exposure: No - Caffeine Use Caffeine Use: Reports: None - Alcohol Use Days Per Week of Alcohol Use: 0 - Recreational Drug Use Recreational Drug Use: No Drug Use in Last 12 Months: No - Living Situation & Occupation Occupation: Retired ED ROS GENERAL - Review of Systems Review Of Systems: See Below Constitutional: Reports: Weakness (increasing past month), Decreased Appetite HEENT: Reports: Glasses Respiratory: Reports: Shortness of Breath (chronic no change recent) Cardiovascular: Reports: Edema (no change), Lightheadedness (with position change chronic). Denies: Chest Pain, Orthopnea GI/Abdominal: Reports: Abdominal Pain (left when presses in area), Decreased Appetite, Nausea : Reports: Urgency Musculoskeletal: Reports: No Symptoms Skin: Reports: Bruising (facial), Wound (skin tear right hand 03/31/17) Psychiatric: Reports: Anxiety Hematologic/Lymphatic: Reports: Anemia (chronic) ED EXAM, GENERAL - Physical Exam Exam: See Below Exam Limited By: No Limitations General Appearance: Alert, Anxious Eye Exam: Right Eye: Periorbital Changes (purple/ yellow bruising right lower), Bilateral Eye: EOMI Ears: Normal External Exam Nose: Normal Inspection Throat/Mouth: Normal Inspection Head: Normocephalic, Facial Swelling (forehead), Other (yellow green bruising forehead) Neck: Normal Inspection Respiratory/Chest: No Respiratory Distress, Lungs Clear, Normal Breath Sounds Cardiovascular: Normal Peripheral Pulses, Regular Rate, Rhythm, Other (rare pac) GI/Abdominal: Normal Bowel Sounds, Soft, Tender (mild midleft abdomen) Rectal (Males) Exam: Normal Exam, Heme - Stool Back Exam: Normal Inspection Extremities: Normal Range of Motion, Pedal Edema Neurological: Alert, Oriented, Normal Cognition Psychiatric: Anxious Skin Exam: Warm, Dry, Pallor, Wound/Incision (large skin tear dorsal right hand from fall one week ago. ) Course - Vital Signs Last Recorded V/S: Last Vital Signs Temp 97.4 F 04/07/17 00:18 Pulse 87 04/07/17 00:18 Resp 24 H 04/07/17 00:18 BP 153/66 H 04/07/17 00:18 Pulse Ox 98 04/07/17 00:18 Orthostatic Blood Pressure [ 116/59 Standing] Orthostatic Blood Pressure [ 136/60 Sitting] Orthostatic Blood Pressure [ 146/63 Supine] - Orders/Labs/Meds Orders: Active Orders 24 hr Category Date Time Status EKG Documentation Completion [RC] URGENT Care 04/06/17 20:51 Active CULTURE WOUND [RM] Stat Lab 04/06/17 22:10 Received Labs: Laboratory Tests 04/06/17 04/06/17 04/06/17 Range/Units 21:03 21:03 21:03 WBC 19.9 H (5.0-10.0) 10^3/uL RBC 3.70 L (4.6-6.2) 10^6/uL Hgb 9.9 L (14.0-18.0) g/dL Hct 30.1 L (40.0-54.0) % MCV 81.4 (80-100) fL MCH 26.8 L (27.0-34.0) pg MCHC 32.9 L (33.0-35.0) g/dL Plt Count 325 (150-450) 10^3/uL Neut % (Auto) 88.5 H (42.2-75.2) % Lymph % (Auto) 5.4 L (20.5-50.1) % [place] % (Auto) 5.8 (2-8) % Eos % (Auto) 0.2 L (1.0-3.0) % Baso % (Auto) 0.1 (0.0-1.0) % Add Manual Diff Yes Neutrophils % (Manual) 88 % Band Neutrophils % 4 % Lymphocytes % (Manual) 4 % Monocytes % (Manual) 4 % Ovalocytes 1+ slight Sodium 130 L (135-145) mmol/L Potassium 4.4 (3.6-5.0) mmol/L Chloride 93 L (101-111) mmol/L Carbon Dioxide 23.0 (21.0-31.0) mmol/L Anion Gap 18.4 BUN 67 H (7-18) mg/dL Creatinine 1.8 H (0.6-1.3) mg/dL Est Cr Clr Drug Dosing 29.06 mL/min Estimated GFR (MDRD) 36 BUN/Creatinine Ratio 37.22 Glucose 150 H (74-105) mg/dL Calcium 9.0 (8.4-10.2) mg/dl Magnesium (1.8-2.5) mg/dL Total Bilirubin 1.0 (0.2-1.0) mg/dL AST 110 H (10-42) IU/L ALT 63 H (10-60) IU/L Alkaline Phosphatase 141 H (42-121) IU/L CK-MB (CK-2) 2.70 (0.4-4.7) ng/mL Troponin I < 0.02 (0.00-0.02) ng/ml B-Natriuretic Peptide 155 H (0-100) pg/ml Total Protein 7.4 (6.7-8.2) g/dl Albumin 2.5 L (3.2-5.5) g/dl Globulin 4.9 Albumin/Globulin Ratio 0.51 Amylase (28-100) U/L Lipase (22-51) U/L Urine Color (YELLOW) Urine Appearance (CLEAR) Urine pH (5.0-9.0) Ur Specific [place] (1.005-1.030) Urine Protein (NEGATIVE) Urine Glucose (UA) (NEGATIVE) Urine Ketones (NEGATIVE) Urine Occult Blood (NEGATIVE) Urine Nitrite (NEGATIVE) Urine Bilirubin (NEGATIVE) Urine Urobilinogen (0.2-1.0) mg/dL Ur Leukocyte Esterase (NEGATIVE) Urine RBC /HPF Urine WBC (0-5/HPF) /HPF Ur Epithelial Cells /HPF Urine Bacteria (0-FEW/HPF) /HPF Urine Mucus /LPF 04/06/17 04/06/17 04/07/17 Range/Units 21:03 21:31 01:05 WBC (5.0-10.0) 10^3/uL RBC (4.6-6.2) 10^6/uL Hgb (14.0-18.0) g/dL Hct (40.0-54.0) % MCV (80-100) fL MCH (27.0-34.0) pg MCHC (33.0-35.0) g/dL Plt Count (150-450) 10^3/uL Neut % (Auto) (42.2-75.2) % Lymph % (Auto) (20.5-50.1) % Wake % (Auto) (2-8) % Eos % (Auto) (1.0-3.0) % Baso % (Auto) (0.0-1.0) % Add Manual Diff Neutrophils % (Manual) % Band Neutrophils % % Lymphocytes % (Manual) % Monocytes % (Manual) % Ovalocytes Sodium (135-145) mmol/L Potassium (3.6-5.0) mmol/L Chloride (101-111) mmol/L Carbon Dioxide (21.0-31.0) mmol/L Anion Gap BUN (7-18) mg/dL Creatinine (0.6-1.3) mg/dL Est Cr Clr Drug Dosing mL/min Estimated GFR (MDRD) BUN/Creatinine Ratio Glucose (74-105) mg/dL Calcium (8.4-10.2) mg/dl Magnesium 1.9 (1.8-2.5) mg/dL Total Bilirubin (0.2-1.0) mg/dL AST (10-42) IU/L ALT (10-60) IU/L Alkaline Phosphatase (42-121) IU/L CK-MB (CK-2) (0.4-4.7) ng/mL Troponin I 0.02 (0.00-0.02) ng/ml B-Natriuretic Peptide (0-100) pg/ml Total Protein (6.7-8.2) g/dl Albumin (3.2-5.5) g/dl Globulin Albumin/Globulin Ratio Amylase 105 H (28-100) U/L Lipase 59 H (22-51) U/L Urine Color Yellow (YELLOW) Urine Appearance Slightly cloudy (CLEAR) Urine pH 5.0 (5.0-9.0) Ur Specific [place] 1.010 (1.005-1.030) Urine Protein 30 H (NEGATIVE) Urine Glucose (UA) Negative (NEGATIVE) Urine Ketones Negative (NEGATIVE) Urine Occult Blood Negative (NEGATIVE) Urine Nitrite Negative (NEGATIVE) Urine Bilirubin Negative (NEGATIVE) Urine Urobilinogen 0.2 (0.2-1.0) mg/dL Ur Leukocyte Esterase Negative (NEGATIVE) Urine RBC 0-5 /HPF Urine WBC 0-5 (0-5/HPF) /HPF Ur Epithelial Cells Few /HPF Urine Bacteria Many H (0-FEW/HPF) /HPF Urine Mucus Few H /LPF Meds: Medications Discontinued Medications Generic Name Dose Route Start Last Admin Trade Name Freq PRN Reason Stop Dose Admin Sodium Chloride 1,000 mls @ 125 mls/hr 04/06/17 23:16 04/06/17 23:22 Normal Saline IV 04/07/17 07:15 125 mls/hr .BOLUS ONE Administration Ondansetron HCl 4 mg 04/06/17 23:16 04/06/17 23:23 Zofran IV 04/06/17 23:17 4 mg ONETIME ONE Administration - Re-Assessments/Exams Free Text/Narrative Re-Assessment/Exam: Dr. Husain here to assess patient. Options discussed with patient. Patient choice to trial at home , follow with PCP Dr. Arias as scheduled on Wednesday and then arrange EGD. Dressing to skin tear removed, wound cleansed and redressed. Departure - Departure Time of Disposition: 01:39 Disposition: Home, Self-Care 01 Condition: fair Clinical Impression: Weakness, Hyponatremia, CKD (chronic kidney disease) stage 4, GFR 15-29 ml/min , Nausea Gastroesophageal reflux disease Qualifiers: Esophagitis presence: esophagitis presence not specified Qualified Code(s): K21.9 - Gastro-esophageal reflux disease without esophagitis Anemia Qualifiers: Anemia type: unspecified type Qualified Code(s): D64.9 - Anemia, unspecified Skin tear of right hand without complication Qualifiers: Encounter type: initial encounter Qualified Code(s): S61.411A - Laceration without foreign body of right hand, initial encounter Leukocytosis, unspecified Qualifiers: Leukocytosis type: bandemia Qualified Code(s): D72.825 - Bandemia - Discharge Information Instructions: Hyponatremia, [id number], Nausea, Adult Referrals: Parker Velasquez MD [Primary Care Provider] - Forms: ED Department Discharge Additional Instructions: zofran 4mg ODT one every 6 hours as needed for nausea more frequent smaller meals, nutritional supplements clinic follow up on with PCP sooner if symptoms worsen. change positions slowly - My Orders Last 24 Hours: My Active Orders 04/06/17 20:51 EKG Documentation Completion [RC] URGENT 04/06/17 22:10 CULTURE WOUND [RM] Stat - Assessment/Plan Last 24 Hours: My Active Orders 04/06/17 20:51 EKG Documentation Completion [RC] URGENT 04/06/17 22:10 CULTURE WOUND [RM] Stat
[2017-04-06] MEDS ORDERED: Ondansetron 4 MG/2 ML SDV IV ONE (23:16)
[2017-04-06] MEDS ORDERED: Sodium Chloride 0.9% 1,000 ML IV ONE (23:16)
[2017-04-07 00:19] VITALS: BP 153/66
--- NOTE | 2017-05-05 13:05 | EKG ---
04/06/2017 - ADENIKE ORIANA GUILLEN - TIME: 2049 hours. EKG shows sinus rhythm. There are atrial premature complexes. The patient has Q-wave in inferior leads, age undetermined. [facility] /[id number]
== END 2017-04-07 02:05 | disposition home or self-care (01) ==
LOC: DL.ED 20:41
DX: E87.1 Hypo-osmolality and hyponatremia (principal); D64.9 Anemia, unspecified; S61.411A Laceration without foreign body of right hand, initial encounter; D72.825 Bandemia; R06.02 Shortness of breath; Z98.2 Presence of cerebrospinal fluid drainage device; Z79.899 Other long term (current) drug therapy; F41.8 Other specified anxiety disorders; N18.4 Chronic kidney disease, stage 4 (severe); F32.9 Major depressive disorder, single episode, unspecified; I12.9 Hypertensive chronic kidney disease with stage 1 through stage 4 chronic kidney disease, or unspecified chronic kidney disease; I25.10 Atherosclerotic heart disease of native coronary artery without angina pectoris; E78.00 Pure hypercholesterolemia, unspecified; Z98.49 Cataract extraction status, unspecified eye; Z95.1 Presence of aortocoronary bypass graft; Z95.5 Presence of coronary angioplasty implant and graft; Z90.49 Acquired absence of other specified parts of digestive tract; R29.6 Repeated falls; X58.XXXA Exposure to other specified factors, initial encounter; R93.8 Abnormal findings on diagnostic imaging of other specified body structures; K86.2 Cyst of pancreas; D18.00 Hemangioma unspecified site; Z88.0 Allergy status to penicillin
CPT/HCPCS: 36415; 71010; 74181; 80053; 81001; 82150; 82272; 82553; 83690; 83735; 83880; 84484; 85025; 87070; 93005; 93010; 96361; 96374; 99284; 99285; J2405; J7030

== ENCOUNTER 2017-04-29 18:07 | Observation (INO) | payer MEDICARE, BC ==
--- NOTE | 2017-04-29 18:34 | EDM.PDOC ---
<HuPaulino Molly - Last Filed: 04/29/17 18:27> ED HPI GENERAL MEDICAL PROBLEM - General Stated Complaint: HURT Time Seen by Provider: 04/29/17 18:20 Source of Information: Reports: Patient History Limitations: Reports: No Limitations - History of Present Illness INITIAL COMMENTS - FREE TEXT/NARRATIVE: This 86 yo male patient was brought to the ED from [facility] due to an episode of syncope resulting in a fall. The patient reports he was headed to supper but started to feel "woosey" and fell hitting the back of his head. The patient reports he had a similar symptoms 3 days ago. The patient has not been seen by his primary care provider of these symptoms. Onset: Today Duration: Minutes:, Resolved Prior to Arrival Location: Reports: Head (hit posterior left head during the fall), Other Quality: Reports: Other Severity: Mild Improves with: Reports: None Worsens with: Reports: None Context: Reports: Other Associated Symptoms: Reports: No Other Symptoms - Related Data Allergies Allergy/AdvReac Type Severity Reaction Status Date / Time Penicillins Allergy Rash Verified 04/06/17 21:23 Home Meds: Home Meds Aspirin [Adult Low Dose Aspirin EC] 81 mg PO DAILY 02/05/14 [History] Fenofibrate Nanocrystallized [Fenofibrate] 54 mg PO DAILY 02/05/14 [History] Furosemide 40 mg PO DAILY 02/05/14 [History] Metoprolol Succinate [Toprol XL 100mg] 100 mg PO DAILY 02/05/14 [History] Multivitamin [Multi-Vitamin Daily] 1 tab PO DAILY 02/05/14 [History] [place]-3/DHA/Epa/Fish Oil [Fish Oil Dr 500 mg Softgel] 1 gm PO BID 02/05/14 [ History] Simvastatin 40 mg PO BEDTIME 02/05/14 [History] cloNIDine HCl [Clonidine HCl] 0.2 mg PO BID 02/05/14 [History] Sertraline [Zoloft] 50 mg PO DAILY 11/29/16 [History] Acetaminophen [Tylenol] 325 mg PO Q8HR PRN 02/13/17 [History] Isosorbide Mononitrate [Isosorbide Mononitrate ER] 120 mg PO DAILY 02/13/17 [ History] LORazepam 0.5 mg PO Q8H PRN 02/13/17 [History] Magnesium 250 mg PO DAILY 02/13/17 [History] amLODIPine [Norvasc] 2.5 mg PO DAILY 02/13/17 [History] Fluorouracil [Fluorouracil] 5 percent TOP DAILY 03/31/17 [History] Ferrous Sulfate 325 mg PO DAILY 04/06/17 [History] Omeprazole 20 mg PO DAILY 04/06/17 [History] traMADol [Ultram] 50 mg PO Q8HR PRN 04/29/17 [History] Past Medical History HEENT History: Reports: Cataract Cardiovascular History: Reports: CAD, High Cholesterol, Hypertension Respiratory History: Reports: Bronchitis, Recurrent Genitourinary History: Reports: Renal Disease Other Genitourinary History: stage 4 kidney disease Musculoskeletal History: Reports: Arthritis, Gout Psychiatric History: Reports: Anxiety, Depression Endocrine/Metabolic History: Reports: Diabetes, Type II Oncologic (Cancer) History: Reports: Basal Cell Carcinoma, Colon, Prostate Dermatologic History: Reports: Melanoma - Past Surgical History Head Surgeries/Procedures: Reports: None HEENT Surgical History: Reports: Cataract Surgery Cardiovascular Surgical History: Reports: Coronary Artery Bypass, Coronary Artery Stent GI Surgical History: Reports: Appendectomy, Colonoscopy Dermatological Surgical History: Reports: Skin Biopsy Social & Family History - Family History Family Medical History: Noncontributory - Tobacco Use Smoking Status *Q: Unknown Ever Smoked Month Tobacco Last Used: 1960's Second Hand Smoke Exposure: No - Caffeine Use Caffeine Use: Reports: None - Alcohol Use Days Per Week of Alcohol Use: 0 - Recreational Drug Use Recreational Drug Use: No Drug Use in Last 12 Months: No - Living Situation & Occupation Occupation: Retired ED ROS GENERAL - Review of Systems Review Of Systems: See Below ED EXAM, GENERAL - Physical Exam Exam: See Below Exam Limited By: No Limitations General Appearance: Alert, WD/WN, No Apparent Distress Eye Exam: Bilateral Eye: EOMI, Normal Inspection, PERRL Ears: Normal External Exam, Normal Canal, Hearing Grossly Normal, Normal TMs Nose: Normal Inspection, Normal Mucosa, No Blood Throat/Mouth: Normal Inspection, Normal Lips, Normal Teeth, Normal Gums, Normal Oropharynx, Normal Voice, No Airway Compromise Head: Atraumatic, Normocephalic Neck: Normal Inspection, Supple, Non-Tender, Full Range of Motion Respiratory/Chest: No Respiratory Distress, Lungs Clear, Normal Breath Sounds, No Accessory Muscle Use, Chest Non-Tender Cardiovascular: Normal Peripheral Pulses, Regular Rate, Rhythm, No Edema, No Gallop, No JVD, No Murmur, No Rub GI/Abdominal: Normal Bowel Sounds, Soft, Non-Tender, No Organomegaly, No Distention, No Abnormal Bruit, No Mass (Male) Exam: Deferred Rectal (Males) Exam: Deferred Back Exam: Normal Inspection, Full Range of Motion, NT Extremities: Normal Inspection, Normal Range of Motion, Non-Tender, Normal Capillary Refill, No Pedal Edema Neurological: Alert, Oriented, CN II-XII Intact, Normal Cognition, Normal Gait, Normal Reflexes, No Motor/Sensory Deficits Psychiatric: Normal Affect, Normal Mood Skin Exam: Warm, Dry, Intact, Normal Color, No Rash, Other (The patient has a bruise over his left eye due to a fall 3 days ago.) Lymphatic: No Adenopathy Course - Orders/Labs/Meds Orders: Active Orders 24 hr Category Date Time Status EKG Documentation Completion [RC] URGENT Care 04/29/17 18:24 Active Labs: Laboratory Tests 04/29/17 04/29/17 04/29/17 Range/Units 18:39 18:39 19:18 WBC 14.9 H (5.0-10.0) 10^3/uL RBC 3.67 L (4.6-6.2) 10^6/uL Hgb 9.8 L (14.0-18.0) g/dL Hct 31.0 L (40.0-54.0) % MCV 84.5 (80-100) fL MCH 26.7 L (27.0-34.0) pg MCHC 31.6 L (33.0-35.0) g/dL Plt Count 239 (150-450) 10^3/uL Neut % (Auto) 85.2 H (42.2-75.2) % Lymph % (Auto) 6.1 L (20.5-50.1) % [place] % (Auto) 8.4 H (2-8) % Eos % (Auto) 0.1 L (1.0-3.0) % Baso % (Auto) 0.2 (0.0-1.0) % Sodium 133 L (135-145) mmol/L Potassium 4.2 (3.6-5.0) mmol/L Chloride 97 L (101-111) mmol/L Carbon Dioxide 20.0 L (21.0-31.0) mmol/L Anion Gap 20.2 BUN 49 H (7-18) mg/dL Creatinine 1.7 H (0.6-1.3) mg/dL Est Cr Clr Drug Dosing 30.24 mL/min Estimated GFR (MDRD) 39 BUN/Creatinine Ratio 28.82 Glucose 171 H (74-105) mg/dL Calcium 8.8 (8.4-10.2) mg/dl Total Bilirubin 1.1 H (0.2-1.0) mg/dL AST 224 H (10-42) IU/L ALT 62 H (10-60) IU/L Alkaline Phosphatase 148 H (42-121) IU/L Troponin I 0.02 (0.00-0.02) ng/ml Total Protein 7.4 (6.7-8.2) g/dl Albumin 3.0 L (3.2-5.5) g/dl Globulin 4.4 Albumin/Globulin Ratio 0.68 Urine Color Yellow (YELLOW) Urine Appearance Clear (CLEAR) Urine pH 5.0 (5.0-9.0) Ur Specific [place] 1.010 (1.005-1.030) Urine Protein Negative (NEGATIVE) Urine Glucose (UA) Negative (NEGATIVE) Urine Ketones Negative (NEGATIVE) Urine Occult Blood Trace-intact H (NEGATIVE) Urine Nitrite Negative (NEGATIVE) Urine Bilirubin Negative (NEGATIVE) Urine Urobilinogen 0.2 (0.2-1.0) mg/dL Ur Leukocyte Esterase Negative (NEGATIVE) Urine RBC 0-5 /HPF Urine WBC Not seen (0-5/HPF) /HPF Ur Epithelial Cells Rare /HPF Departure - Departure Disposition: Refer to Observation Clinical Impression: CKD (chronic kidney disease) stage 4, GFR 15-29 ml/min, Weakness, Hyponatremia Syncope Qualifiers: Syncope type: unspecified Qualified Code(s): R55 - Syncope and collapse Forms: ED Department Discharge <Josue Moraes - Last Filed: 04/29/17 20:11> Course - Re-Assessments/Exams Free Text/Narrative Re-Assessment/Exam: 04/29/17 19:49 results discussed with Pt. 04/29/17 20:[address] Jaquez who kindly admitted pt for observation. Departure - Departure Time of Disposition: 20:10 Condition: Good
[2017-04-29] MEDS ORDERED: Polyethylene Glycol 3350 Powder 17 GM Packet PO PRN (21:00)
[2017-04-29] MEDS ORDERED: Ondansetron 4 MG/2 ML SDV IVPUSH PRN (21:00)
[2017-04-29] MEDS ORDERED: Sodium Chloride 0.9% 1,000 ML IV SCH (21:00)
--- NOTE | 2017-04-29 21:24 | PCM.HP ---
H&P History of Present Illness - General Date of Service: 04/29/17 Admit Problem/Dx: Admission Diagnosis/Problem Admission Diagnosis/Problem Falls Source of Information: Patient History Limitations: Reports: No Limitations - History of Present Illness Initial Comments - Free Text/Narative: 56-year-old male with past medical history of Coronary artery disease, Status post coronary bypass surgery, Status post coronary stent placement, Hypertension , Chronic kidney disease, Chronic anemia, multifactorial, Status post sigmoid colon surgery for adenocarcinoma,Status post recent fall and soft tissue injury presented to the emergency room for falling at home. This is his third fall since March. He said while he was standing he felt weak and wobbly so he fail on his bottom first then the back of his head laid on the floor. He denies losing consciousness, dizziness, lightheadedness, chest pain, palpitation, fever, chills, nausea, vomiting, shortness breath, cough, abdominal pain, blood in the stool, black stool, dysuria, unilateral weakness. He has been seen recently at the clinic for the fall and for elevated liver enzymes. Positive recommended to do a MRI. He has not done them. He admitted to having bruises on left frontal area from previous fall. In the emergency room CT of the head and chest x-ray did not show acute findings. WBC 14.9. Hemoglobin 9.8. Sodium 133. Potassium 4.2. Carbon dioxide 20. Creatinine 1.7. BUN and 49. Blood glucose 171. Total bilirubin 1.1. AST 224. ALP 62. Alkaline phosphatase with as 148. UA is unremarkable. Previous workup was done at the clinic in March showed lipase 3000. CRP 7.7. Creatinine 1.8. AST 96. ALP 67. Also liver ultrasound was done and reported as showing mildly enlarged liver, infiltrative mass-like involvement anterior half right lobe of the liver. - Related Data Allergies/Adverse Reactions: Allergies Allergy/AdvReac Type Severity Reaction Status Date / Time Penicillins Allergy Rash Verified 04/06/17 21:23 Home Medications: Home Meds Aspirin [Adult Low Dose Aspirin EC] 81 mg PO DAILY 02/05/14 [History] Fenofibrate Nanocrystallized [Fenofibrate] 54 mg PO DAILY 02/05/14 [History] Furosemide 40 mg PO DAILY 02/05/14 [History] Metoprolol Succinate [Toprol XL 100mg] 100 mg PO DAILY 02/05/14 [History] Multivitamin [Multi-Vitamin Daily] 1 tab PO DAILY 02/05/14 [History] [place]-3/DHA/Epa/Fish Oil [Fish Oil Dr 500 mg Softgel] 1 gm PO BID 02/05/14 [ History] Simvastatin 40 mg PO BEDTIME 02/05/14 [History] cloNIDine HCl [Clonidine HCl] 0.2 mg PO BID 02/05/14 [History] Sertraline [Zoloft] 50 mg PO DAILY 11/29/16 [History] Acetaminophen [Tylenol] 325 mg PO Q8HR PRN 02/13/17 [History] Isosorbide Mononitrate [Isosorbide Mononitrate ER] 120 mg PO DAILY 02/13/17 [ History] LORazepam 0.5 mg PO Q8H PRN 02/13/17 [History] Magnesium 250 mg PO DAILY 02/13/17 [History] amLODIPine [Norvasc] 2.5 mg PO DAILY 02/13/17 [History] Fluorouracil [Fluorouracil] 5 percent TOP DAILY 03/31/17 [History] Ferrous Sulfate 325 mg PO DAILY 04/06/17 [History] Omeprazole 20 mg PO DAILY 04/06/17 [History] traMADol [Ultram] 50 mg PO Q8HR PRN 04/29/17 [History] Past Medical History HEENT History: Reports: Cataract Cardiovascular History: Reports: CAD, High Cholesterol, Hypertension Respiratory History: Reports: Bronchitis, Recurrent Genitourinary History: Reports: Renal Disease Other Genitourinary History: stage 4 kidney disease Musculoskeletal History: Reports: Arthritis, Gout Psychiatric History: Reports: Anxiety, Depression Endocrine/Metabolic History: Reports: Diabetes, Type II Oncologic (Cancer) History: Reports: Basal Cell Carcinoma, Colon, Prostate Dermatologic History: Reports: Melanoma - Past Surgical History Head Surgeries/Procedures: Reports: None HEENT Surgical History: Reports: Cataract Surgery Cardiovascular Surgical History: Reports: Coronary Artery Bypass, Coronary Artery Stent GI Surgical History: Reports: Appendectomy, Colonoscopy Dermatological Surgical History: Reports: Skin Biopsy Social & Family History - Family History Family Medical History: Noncontributory - Tobacco Use Smoking Status *Q: Unknown Ever Smoked Month Tobacco Last Used: 1959's Second Hand Smoke Exposure: No - Caffeine Use Caffeine Use: Reports: None - Alcohol Use Days Per Week of Alcohol Use: 0 - Recreational Drug Use Recreational Drug Use: No Drug Use in Last 12 Months: No - Living Situation & Occupation Occupation: Retired H&P Review of Systems - Review of Systems: Review Of Systems: See Below General: Reports: Weakness, Weight Loss. Denies: Fever, Chills HEENT: Reports: No Symptoms Pulmonary: Reports: No Symptoms Cardiovascular: Reports: No Symptoms Gastrointestinal: Reports: No Symptoms Genitourinary: Reports: No Symptoms Musculoskeletal: Reports: No Symptoms Skin: Reports: No Symptoms Psychiatric: Reports: No Symptoms Neurological: Reports: No Symptoms Hematologic/Lymphatic: Reports: No Symptoms Immunologic: Reports: No Symptoms Exam - Exam Exam: See Below - Vital Signs Weight: 80.739 kg - Exam General: Alert, Oriented, Cooperative, Mild Distress. No: Moderate Distress, Severe Distress, Sedated, Lethargic, Obtunded HEENT: Conjunctiva Clear, EACs Clear, EOMI, Mucosa Moist & [place], Nares Patent, Pupils Equal, Pupils Reactive, Other (Bruises on the left frontal area) Neck: Supple, Trachea Midline Lungs: Clear to Auscultation, Normal Respiratory Effort. No: Crackles, Rales, Rhonchi, Rub, Stridor, Wheezing Cardiovascular: Regular Rate, Regular Rhythm Abdomen: Normal Bowel Sounds, Soft, Pelvis Stable. No: Distention, Guarding, Rigidity, Rebound, Tenderness (Male) Exam: Deferred Rectal (Males) Exam: Deferred Back Exam: Normal Inspection, Full Range of Motion Extremities: Normal Pulses, Edema (Trace lower extremities edema). No: Clubbing , Cyanosis, Calf Tenderness Skin: Warm, Dry Neurological: Cranial Nerves Intact, Strength Equal Bilateral, Normal Speech, Normal Tone Neuro Extensive - Mental Status: Alert, Oriented x3, Normal Mood/Affect, Normal Cognition Neuro Extensive - Motor, Sensory, Reflexes: CN II-XII Intact Psychiatric: Alert, Normal Affect, Normal Mood - Patient Data Result Diagrams: 04/29/17 18:39 04/29/17 18:39 *Q Meaningful Use (ADM) - VTE *Q VTE Criteria *Q: - Stroke *Q Stroke Criteria *Q: - AMI *Q AMI Criteria *Q: - Problem List (1) Fall at home SNOMED Code(s): 92113438 ICD Code: W19.XXXA - UNSPECIFIED FALL, INITIAL ENCOUNTER; Y92.099 - UNSP PLACE IN [facility] NON-INSTITUTIONAL RESIDENCE PLACE Status: Acute Priority: High Current Visit: Yes (2) Generalized weakness SNOMED Code(s): 26355486 ICD Code: R53.1 - WEAKNESS Status: Chronic Priority: Medium Current Visit: Yes (3) Elevated liver enzymes SNOMED Code(s): 917539213, 378658144 ICD Code: R74.8 - ABNORMAL LEVELS OF OTHER SERUM ENZYMES Status: Chronic Current Visit: Yes (4) Leukocytosis SNOMED Code(s): 529647417, 383423176 ICD Code: D72.829 - ELEVATED WHITE BLOOD CELL COUNT, UNSPECIFIED Status: Acute Current Visit: Yes (5) History of coronary artery disease SNOMED Code(s): 625692499 ICD Code: Z86.79 - PERSONAL HISTORY OF OTHER DISEASES OF THE CIRCULATORY SYSTEM Status: Chronic Current Visit: Yes (6) Essential hypertension SNOMED Code(s): 99404177 ICD Code: I10 - ESSENTIAL (PRIMARY) HYPERTENSION Status: Chronic Current Visit: Yes (7) Hyponatremia SNOMED Code(s): 86103648 ICD Code: E87.1 - HYPO-OSMOLALITY AND HYPONATREMIA Status: Chronic Current Visit: Yes (8) CKD (chronic kidney disease) stage 4, GFR 15-29 ml/min SNOMED Code(s): 531036954 ICD Code: N18.4 - CHRONIC KIDNEY DISEASE, STAGE 4 (SEVERE) Status: Chronic Current Visit: Yes (9) Dehydration SNOMED Code(s): 05267437 ICD Code: E86.0 - DEHYDRATION Status: Acute Current Visit: No (10) Gastroesophageal reflux disease SNOMED Code(s): 669234096 ICD Code: K21.9 - GASTRO-ESOPHAGEAL REFLUX DISEASE WITHOUT ESOPHAGITIS Status: Chronic Current Visit: No Qualifiers: Esophagitis presence: esophagitis presence not specified Qualified Code(s) : K21.9 - Gastro-esophageal reflux disease without esophagitis (11) Anemia SNOMED Code(s): 483682483 ICD Code: D64.9 - ANEMIA, UNSPECIFIED Status: Chronic Current Visit: No Qualifiers: Anemia type: unspecified type Qualified Code(s): D64.9 - Anemia, unspecified Problem List Initiated/Reviewed/Updated: Yes Orders Last 24hrs: Active Orders 24 hr Category Date Time Status Patient Status [ADT] Routine ADT 04/29/17 21:00 Active Antiembolic Devices [RC] PER UNIT ROUTINE Care 04/29/17 21:04 Ordered Bedrest Bathroom Privileges [RC] ASDIRECTED Care 04/29/17 21:00 Ordered Height and Weight [RC] DAILY Care 04/29/17 21:00 Ordered Intake and Output [RC] Q6H Care 04/29/17 21:02 Ordered Notify Provider Vital Signs [RC] ASDIRECTED Care 04/29/17 21:02 Ordered Oxygen Therapy [RC] PRN Care 04/29/17 21:00 Ordered Up With Assistance [RC] ASDIRECTED Care 04/29/17 21:00 Ordered VTE/DVT Education [RC] PER UNIT ROUTINE Care 04/29/17 21:00 Ordered Vital Signs [RC] Q4H Care 04/29/17 21:00 Ordered OT Evaluation and Treatment [CONS] Routine Cons 04/29/17 21:00 Active PT Evaluation and Treatment [CONS] Routine Cons 04/29/17 21:00 Active Regular Diet [DIET] Diet 04/29/17 Breakfast Active BASIC METABOLIC PANEL,BMP [CHEM] AM Lab 04/30/17 05:11 Ordered CBC WITH AUTO DIFF [HEME] AM Lab 04/30/17 05:11 Ordered LIPASE [CHEM] Routine Lab 04/29/17 20:57 Ordered Ondansetron [Zofran] Med 04/29/17 21:00 Ordered 4 mg IVPUSH Q6H PRN Polyethylene Glycol 3350 [MiraLAX] Med 04/29/17 21:00 Ordered 17 gm PO DAILY PRN Sodium Chloride 0.9% [Normal Saline] 1,000 ml Med 04/29/17 21:00 Ordered IV ASDIRECTED Antiembolic Hose [OM.PC] Per Unit Routine Oth 04/29/17 21:03 Ordered Resuscitation Status Routine Resus Stat 04/29/17 21:00 Ordered Assessment/Plan Comment:: Falls at home, possibly from generalized weakness, multiple comorbidities, medications Admit patient for observation for safety as patient lives by herself and does not enough support fall precautions Physical and occasional therapy evaluation and treatment I did not appreciate acute musculoskeletal injury or physical exam except for contusion on the forehead Elevated liver enzymes, chronic Today more elevated than before needs follow-up by primary care provider and possibly do the MRI of liver Avoid him both toxic medications such as Tylenol Enlarged liver with infiltrative mass like involving the anterior half right lobe of the liver on recent ultrasound Needs follow-up with primary care provider and GI and possibly do the MRI of the liver Leukocytosis Possibly from fall or from acute versus chronic inflammatory process Dehydration, mild Gentle IV fluid infusion for rehydration Anemia, chronic To be addressed by primary care provider as outpatient Recent history of elevated lipase We'll check lipase again Hyponatremia, chronic Continue to watch his sodium Contusion of the head, from fall Ice pack for pain Fall precautions Chronic kidney disease Avoid nephrotoxic medications EBEN hose for DVT prophylaxis He wants to be DNR/DNI for CODE STATUS
[2017-04-30] MEDS: Omeprazole 20 MG Cap.CR PO SCH (05:59)
[2017-04-30] MEDS ORDERED: OMEGA PO SCH (09:00)
[2017-04-30] MEDS ORDERED: FLUOROURACIL TOP SCH (09:00)
[2017-04-30] MEDS ORDERED: DHA PO SCH (09:00)
[2017-04-30] MEDS ORDERED: FISH OIL PO SCH (09:00)
[2017-04-30] MEDS ORDERED: [UNRECOGNIZED DRUG - OTHER] PO SCH (09:00)
[2017-04-30] MEDS ORDERED: EPA PO SCH (09:00)
[2017-04-30] MEDS ORDERED: oxyCODONE 5 MG Tab PO PRN (10:22)
[2017-04-30] MEDS: Multivitamins,Therapeutic Tab PO SCH (11:08)
[2017-04-30] MEDS: Furosemide 40 MG Tab PO SCH (11:08)
[2017-04-30] MEDS: Aspirin 81 MG Tab.EC PO SCH (11:08)
[2017-04-30] MEDS: Ferrous Sulfate 325 MG Tab PO SCH (11:08)
[2017-04-30] MEDS: Sertraline 50 MG Tab PO SCH (11:08)
[2017-04-30] MEDS: Isosorbide Mononitrate 60 MG Tab.ER PO SCH (11:09)
[2017-04-30] MEDS: cloNIDine 0.1 MG Tab PO SCH ×2 (11:09→20:45)
[2017-04-30] MEDS: amLODIPine 5 MG Tab PO SCH (11:11)
[2017-04-30] MEDS: Metoprolol Succinate 50 MG Tab.ER PO SCH (11:13)
--- NOTE | 2017-04-30 11:30 | PN ---
DATE: 04/30/2017 SUBJECTIVE: The patient this morning is still complaining of some pain, more on the lower back, but the patient denies any headache, chest pain, or shortness of breath. Denies any fever, chills, nor any other complaints. LABORATORY DATA: Lab workup this morning; WBC is 12.8, hemoglobin is 9.7, hematocrit 30.7, and platelet is 213. Chem-6; sodium is 134, chloride of 97, BUN is 47, creatinine is 1.7, glucose is 136. OBJECTIVE: Vital signs: Blood pressure is 186/64, pulse of 94, respirations 20, temperature of 98.1. Heart: Regular rate and rhythm. Normal S1 and S2. No gallops. No rubs. Lungs: Equal bilaterally. No crackles. No wheezing. Abdomen: Moderately obese, but soft, nontender. Bowel sounds positive. Back: Examination of the LS spine and left flank area is remarkable for some reproducible tenderness with palpation. Extremities: Negative for any gross deformities. No calf tenderness. MEDICATIONS: Reviewed. PLAN: We will continue with his present management. We will order for physical therapy for strengthening and we will also get an x-ray of the LS spine because of the pain. In the meantime, we will continue with his medication. We will also put the patient on oxycodone for some pain management. [facility] /[id number]
--- NOTE | 2017-04-30 14:25 | CR ---
Clinical history: 86-year-old male with neck pain (fall). Interpretation: Exaggerated lumbar lordosis. L5 spondylolysis (fracture) with anterior dislocation of the L5 vertebral body (spondylolisthesis). Signs of chronic multilevel L2-3 and L5-S1 disc disease. Hypertrophic spondylosis. No new signs of lumbar fracture or dislocation when compared directly to sagittal CT images of the s [place] 01 Apr 2017. Dense calcifications normal caliber abdominal aorta. Symmetric normal-appearing hip joints. CONCLUSION: Abnormal but unchanged since 01 Apr 2017 exam.
[2017-04-30] MEDS ORDERED: Non-Formulary Medication 1 Each (Simvastatin [Simvastatin] 40 MG) PO SCH (21:00)
[2017-04-30] MEDS ORDERED: Simvastatin 10 MG Tab PO SCH (21:00)
[2017-05-01] MEDS: Omeprazole 20 MG Cap.CR PO SCH (05:29)
[2017-05-01] MEDS: Ferrous Sulfate 325 MG Tab PO SCH (09:47)
[2017-05-01] MEDS: Sertraline 50 MG Tab PO SCH (09:48)
[2017-05-01] MEDS: Furosemide 40 MG Tab PO SCH (09:48)
[2017-05-01] MEDS: Multivitamins,Therapeutic Tab PO SCH (09:48)
[2017-05-01] MEDS: amLODIPine 5 MG Tab PO SCH (09:49)
[2017-05-01] MEDS: Aspirin 81 MG Tab.EC PO SCH (09:49)
[2017-05-01] MEDS: Metoprolol Succinate 50 MG Tab.ER PO SCH (09:49)
[2017-05-01] MEDS: Isosorbide Mononitrate 60 MG Tab.ER PO SCH (09:51)
[2017-05-01] MEDS: cloNIDine 0.1 MG Tab PO SCH (09:51)
--- NOTE | 2017-05-01 09:51 | PN ---
DATE: 05/01/2017 SUBJECTIVE: The patient is feeling much better this morning and he mentioned that he is ready to go home. The flank pain and low back pain that he was complaining yesterday have improved. X-ray of the LS spine official report showed some disk disease, but basically unchanged from 04/01/2017 exam. LABORATORY DATA: Lab workup this morning, CBC; WBC 11.9, hemoglobin is 9.5, hematocrit is 30, platelet is 198. Chem-6; sodium is 132, potassium is 3.4, BUN is 43, creatinine of 1.5, glucose is 127, the rest of the panel is unremarkable. OBJECTIVE: Vital Signs: Blood pressure is 138/86, pulse of 78, respirations 20, temperature of 98.5. Heart: Regular rate and rhythm. Normal S1 and S2. No gallops. No rubs. Lungs: Equal bilaterally. No crackles. No wheezing. Abdomen: Moderately obese, but soft, nontender. Extremities: Negative for any gross deformities. There is no calf tenderness. There is trace bilateral pedal edema. MEDICATIONS: Reviewed. PLAN: We will discharge the patient back to assisted living, and this was also discussed with his son yesterday and they are agreeable to the plan. We will also discontinue the Norvasc as the patient might have some signs of orthostasis. I am going to see him for followup next week at the clinic. We will also make a referral to Dr. Paulino because of this recurrent falls and possibly related to Parkinson disease. CONDITION ON DISCHARGE: Improved. [facility] /[id number]
[2017-05-01 11:20] VITALS: BP 138/86
--- NOTE | 2017-05-01 16:24 | DISCH ---
FINAL DIAGNOSES: 1. Recurrent fall secondary to gait instability. 2. Coronary artery disease status post CABG. 3. Hypertension. 4. Chronic kidney disease. 5. Anemia of chronic disease. 6. Parkinson disease. BRIEF HISTORY OF PRESENT ILLNESS: Please see H and P. HOSPITAL COURSE: The patient was admitted to General Medicine floor for observation. A CAT scan of the head and a chest x-ray was done, which did not show any acute findings. The patient's WBC on admission was slightly elevated and this was followed closely and be slowly improved. The patient's hospital course was uncomplicated except for complaint of some low back pain and an x-ray was done and it showed disc disease, but no acute findings when compared to the films on April 01, 2017. It was discussed with the son as well as the patient that he will be discharged back to [facility] and they are agreeable with this plan and I will see him for followup in 7 to 10 days for a recheck and we will also discontinue his Norvasc as blood pressure is running on the low side and we will also make a referral to Dr. Paulino because of his gait instability and Parkinson disease. CONDITION ON DISCHARGE: Improved. [facility] /[id number]
--- NOTE | 2017-05-21 11:21 | EKG ---
04/29/2017 - ORIANA JEONG I reviewed the EKG, agree with the machine's reading. [facility] /[id number]
== END 2017-05-01 11:30 | disposition home or self-care (01) ==
LOC: DL.ED 18:07 → DL.MS 20:52 → UNDOADMOB 20:52 → DL.MS 21:00
PROVIDERS: ADMIT Family Medicine; ATTEND Family Medicine
DX: R29.6 Repeated falls (principal); R53.1 Weakness; R55 Syncope and collapse; S00.93XA Contusion of unspecified part of head, initial encounter; D72.829 Elevated white blood cell count, unspecified; I25.10 Atherosclerotic heart disease of native coronary artery without angina pectoris; I12.9 Hypertensive chronic kidney disease with stage 1 through stage 4 chronic kidney disease, or unspecified chronic kidney disease; N18.4 Chronic kidney disease, stage 4 (severe); G20 Parkinson's disease; E86.0 Dehydration; D63.8 Anemia in other chronic diseases classified elsewhere; E87.1 Hypo-osmolality and hyponatremia; K21.9 Gastro-esophageal reflux disease without esophagitis; R74.8 Abnormal levels of other serum enzymes; R16.0 Hepatomegaly, not elsewhere classified; E78.00 Pure hypercholesterolemia, unspecified; F41.9 Anxiety disorder, unspecified; F32.9 Major depressive disorder, single episode, unspecified; M10.9 Gout, unspecified; E11.22 Type 2 diabetes mellitus with diabetic chronic kidney disease; Z79.82 Long term (current) use of aspirin; Z79.899 Other long term (current) drug therapy; Z95.1 Presence of aortocoronary bypass graft; Z95.5 Presence of coronary angioplasty implant and graft; Z90.49 Acquired absence of other specified parts of digestive tract; Z98.890 Other specified postprocedural states; W19.XXXA Unspecified fall, initial encounter
CPT/HCPCS: 36415; 70450; 71010; 72100; 80048; 80053; 81001; 83690; 84484; 85025; 93005; 93010; 99284; 99285; A9270; J7030; 96360; 96361; 97162-GP; 97166-GO; G0378

== ENCOUNTER 2017-06-28 21:58 | Emergency (ER) | payer MEDICARE, BC ==
[2017-06-28 22:23] VITALS: BP 152/60
--- NOTE | 2017-06-28 22:35 | EDM.PDOC ---
ED HPI GENERAL MEDICAL PROBLEM - General Chief Complaint: General Stated Complaint: POSSIBLE DEHYRDATION, [id number] Time Seen by Provider: 06/28/17 22:32 Source of Information: Reports: Patient, Family History Limitations: Reports: No Limitations - History of Present Illness INITIAL COMMENTS - FREE TEXT/NARRATIVE: pt states @ 5pm had no strength in his legs unable get up and NH had to pick him up. then suddenly he became fine and able to walk about using his walker. both NH & family wanted check for dehydration. pt denies CP/SOB/weakness presently. pt states he can get up and go home using his walker. - Related Data Allergies Allergy/AdvReac Type Severity Reaction Status Date / Time Penicillins Allergy Rash Verified 06/28/17 22:23 Home Meds: Home Meds Aspirin [Adult Low Dose Aspirin EC] 81 mg PO DAILY 02/05/14 [History] Fenofibrate Nanocrystallized [Fenofibrate] 54 mg PO DAILY 02/05/14 [History] Furosemide 40 mg PO DAILY 02/05/14 [History] Metoprolol Succinate [Toprol XL 100mg] 100 mg PO DAILY 02/05/14 [History] Multivitamin [Multi-Vitamin Daily] 1 tab PO DAILY 02/05/14 [History] [place]-3/DHA/Epa/Fish Oil [Fish Oil Dr 500 mg Softgel] 1 gm PO BID 02/05/14 [ History] cloNIDine HCl [Clonidine HCl] 0.2 mg PO BID 02/05/14 [History] Sertraline [Zoloft] 50 mg PO DAILY 11/29/16 [History] Acetaminophen [Tylenol] 325 mg PO Q8HR PRN 02/13/17 [History] Isosorbide Mononitrate [Isosorbide Mononitrate ER] 120 mg PO DAILY 02/13/17 [ History] LORazepam 0.5 mg PO Q8H PRN 02/13/17 [History] Magnesium 250 mg PO DAILY 02/13/17 [History] Fluorouracil 5 percent TOP DAILY 03/31/17 [History] Ferrous Sulfate 325 mg PO DAILY 04/06/17 [History] Omeprazole 20 mg PO DAILY 04/06/17 [History] Simvastatin [Zocor] 20 mg PO BEDTIME #30 tablet 05/01/17 [Rx] oxyCODONE 5 mg PO Q8H PRN #30 tablet 05/01/17 [Rx] Past Medical History HEENT History: Reports: Cataract Cardiovascular History: Reports: CAD, High Cholesterol, Hypertension Respiratory History: Reports: Bronchitis, Recurrent Genitourinary History: Reports: Renal Disease Other Genitourinary History: stage 4 kidney disease Musculoskeletal History: Reports: Arthritis, Gout Psychiatric History: Reports: Anxiety, Depression Endocrine/Metabolic History: Reports: Diabetes, Type II Oncologic (Cancer) History: Reports: Basal Cell Carcinoma, Colon, Prostate Dermatologic History: Reports: Melanoma - Past Surgical History Head Surgeries/Procedures: Reports: None HEENT Surgical History: Reports: Cataract Surgery Cardiovascular Surgical History: Reports: Coronary Artery Bypass, Coronary Artery Stent GI Surgical History: Reports: Appendectomy, Colonoscopy Dermatological Surgical History: Reports: Skin Biopsy Social & Family History - Family History Family Medical History: Noncontributory - Tobacco Use Smoking Status *Q: Former Smoker Used Tobacco, but Quit: No Month Tobacco Last Used: 1959's Second Hand Smoke Exposure: No - Caffeine Use Caffeine Use: Reports: Coffee, Soda - Alcohol Use Days Per Week of Alcohol Use: 0 - Recreational Drug Use Recreational Drug Use: No Drug Use in Last 12 Months: No - Living Situation & Occupation Occupation: Retired ED ROS GENERAL - Review of Systems Review Of Systems: ROS reveals no pertinent complaints other than HPI. ED EXAM, GENERAL - Physical Exam Exam: See Below Exam Limited By: No Limitations General Appearance: Alert, WD/WN, No Apparent Distress Ears: Hearing Grossly Normal Throat/Mouth: Normal Voice, No Airway Compromise Head: Atraumatic Neck: Non-Tender, Full Range of Motion Respiratory/Chest: No Respiratory Distress Cardiovascular: Regular Rate, Rhythm GI/Abdominal: Soft, Non-Tender Extremities: Normal Inspection, Normal Range of Motion, Non-Tender, Pedal Edema (1+) Neurological: Alert, Oriented, Normal Cognition, No Motor/Sensory Deficits Psychiatric: Normal Affect, Normal Mood Skin Exam: Warm, Dry, Normal Color Lymphatic: No Adenopathy Course - Vital Signs Last Recorded V/S: Last Vital Signs Temp 36.2 C 06/28/17 22:01 Pulse 81 06/28/17 22:01 Resp 18 06/28/17 22:01 BP 152/60 H 06/28/17 22:01 Pulse Ox 99 06/28/17 22:01 - Orders/Labs/Meds Labs: Laboratory Tests 06/28/17 06/28/17 Range/Units 22:39 22:39 WBC 11.1 H (5.0-10.0) 10^3/uL RBC 3.83 L (4.6-6.2) 10^6/uL Hgb 10.6 L (14.0-18.0) g/dL Hct 32.8 L (40.0-54.0) % MCV 85.6 (80-100) fL MCH 27.7 (27.0-34.0) pg MCHC 32.3 L (33.0-35.0) g/dL Plt Count 179 (150-450) 10^3/uL Neut % (Auto) 76.8 H (42.2-75.2) % Lymph % (Auto) 12.6 L (20.5-50.1) % [place] % (Auto) 9.9 H (2-8) % Eos % (Auto) 0.3 L (1.0-3.0) % Baso % (Auto) 0.4 (0.0-1.0) % Sodium 130 L (135-145) mmol/L Potassium 4.3 (3.6-5.0) mmol/L Chloride 96 L (101-111) mmol/L Carbon Dioxide 21.0 (21.0-31.0) mmol/L Anion Gap 17.3 BUN 34 H (7-18) mg/dL Creatinine 1.3 (0.6-1.3) mg/dL Est Cr Clr Drug Dosing 40.24 mL/min Estimated GFR (MDRD) 53 BUN/Creatinine Ratio 26.15 Glucose 126 H (74-105) mg/dL Calcium 8.6 (8.4-10.2) mg/dl Total Bilirubin 1.6 H (0.2-1.0) mg/dL AST 112 H (10-42) IU/L ALT 11 (10-60) IU/L Alkaline Phosphatase 168 H (42-121) IU/L Total Protein 6.9 (6.7-8.2) g/dl Albumin 2.6 L (3.2-5.5) g/dl Globulin 4.3 Albumin/Globulin Ratio 0.60 - Re-Assessments/Exams Free Text/Narrative Re-Assessment/Exam: 06/28/17 23:21 results discussed with pt & family. son states pt had appt' with Dr Judd for f/ u on tremours. pt wants to go home Departure - Departure Time of Disposition: 23:22 Disposition: Home, Self-Care 01 Condition: Good Clinical Impression: TIA (transient ischemic attack) Qualifiers: Transient cerebral ischemia type: unspecified Qualified Code(s): G45.9 - Transient cerebral ischemic attack, unspecified - Discharge Information Forms: ED Department Discharge Additional Instructions: 1) see family doctor tomorrow for Neurology referral 2) recheck if there is any change or concern
== END 2017-06-28 23:37 | disposition home or self-care (01) ==
LOC: DL.ED 21:58
DX: G45.9 Transient cerebral ischemic attack, unspecified (principal); I25.10 Atherosclerotic heart disease of native coronary artery without angina pectoris; E78.00 Pure hypercholesterolemia, unspecified; I12.9 Hypertensive chronic kidney disease with stage 1 through stage 4 chronic kidney disease, or unspecified chronic kidney disease; N18.4 Chronic kidney disease, stage 4 (severe); M19.90 Unspecified osteoarthritis, unspecified site; F41.9 Anxiety disorder, unspecified; F32.9 Major depressive disorder, single episode, unspecified; Z98.49 Cataract extraction status, unspecified eye; Z90.49 Acquired absence of other specified parts of digestive tract; Z79.899 Other long term (current) drug therapy; Z88.0 Allergy status to penicillin; Z79.82 Long term (current) use of aspirin; Z95.1 Presence of aortocoronary bypass graft; Z95.5 Presence of coronary angioplasty implant and graft; Z85.038 Personal history of other malignant neoplasm of large intestine; Z85.46 Personal history of malignant neoplasm of prostate; Z87.891 Personal history of nicotine dependence; Z85.828 Personal history of other malignant neoplasm of skin
CPT/HCPCS: 36415; 80053; 85025; 99284